=== PATIENT | female | born 1955 | race Caucasian/White ===

== ENCOUNTER → 2017-02-25 | Outpatient (CLI) | payer BC ==
[~2017-02-25] MED LIST: CHOL100010 PO; CMD5 PO; CMD75 PO; DLCSR180 PO; DPKSR500 PO; FSM70 PO; LSN25 PO
--- NOTE | 2017-02-26 13:21 | MAMMOGRAPHY REPORT ---
BILATERAL DIGITAL SCREENING MAMMOGRAM TOMOSYNTHESIS WITH CAD: 02/25/2017 CLINICAL HISTORY: Routine screening. Patient has no complaints. TECHNIQUE: Breast tomosynthesis in addition to standard 2D mammography was performed. Current study was also evaluated with a Computer Aided Detection (CAD) system. COMPARISON: Comparison is made to exams dated: 02/20/2016 mammogram, 02/12/2015 mammogram, 02/08/2014 m ammogram, 02/03/2012 mammogram, 02/07/2013 mammogram, and 01/28/2011 mammogram - [facility] nter. BREAST COMPOSITION: There are scattered areas of fibroglandular density in both breasts. FINDINGS: No suspicious masses, calcifications, or areas of architectural distortion are noted in ei ther breast. There has been no significant interval change compared to prior exams. Scattered bilater al benign-appearing calcifications are not significantly changed. IMPRESSION: ACR BI-RADS CATEGORY 2: BENIGN There is no mammographic evidence of malignancy. A 1 year screening mammogram is recommended. The pa tient will receive written notification of the results. Approximately 10% of breast cancers are not detected with mammography. A negative mammographic report should not delay biopsy if a clinically suggestive mass is present. Veronica James M.D. /:02/25/2017 15:08:26 Recovery Agent: Keren PETERS)(M), [facility] letter sent: Normal 1/2 BI-RADS Code: ACR BI-RADS Category 2: Benign
== END | disposition home or self-care (01) ==
LOC: C.MAMM 14:17
PROVIDERS: ATTEND Family Medicine
DX: Z12.31 Encounter for screening mammogram for malignant neoplasm of breast (principal)

== ENCOUNTER → 2018-03-01 | Outpatient (CLI) | payer BC ==
--- NOTE | 2018-03-02 13:40 | MAMMOGRAPHY REPORT ---
BILATERAL DIGITAL SCREENING MAMMOGRAM TOMOSYNTHESIS WITH CAD: 03/01/2018 CLINICAL HISTORY: Routine screening. Patient has no complaints. TECHNIQUE: The study was acquired using full field digital technology and interpreted from soft copy. Breast tomosynthesis in addition to standard 2D mammography was performed. Current study was also ev aluated with a Computer Aided Detection (CAD) system. COMPARISON: Comparison is made to exams dated: 02/25/2017 mammogram, 02/20/2016 mammogram, 02/12/2015 ma mmogram, 02/08/2014 mammogram, 02/07/2013 mammogram, and 02/03/2012 mammogram - [facility] nter. BREAST COMPOSITION: There are scattered areas of fibroglandular density in both breasts. FINDINGS: The parenchymal pattern is similar to prior mammograms. There are moderate vascular calcifications i n the breasts. No developing mass, architectural distortion or cluster of suspicious microcalcificat ions is seen. IMPRESSION: ACR BI-RADS CATEGORY 2: BENIGN There is no mammographic evidence of malignancy. A 1 year screening mammogram is recommended.( 019) The patient will receive written notification of the results. Some breast cancers are not detected with mammography. A negative mammographic report should not misty y biopsy if a clinically suggestive mass is present. Laxmi Medina M.D. ay/:03/01/2018 17:43:59 Plumber Pipe Fitting: RT Hedy(Jared)(M), [facility] letter sent: Normal 1/2 BI-RADS Code: ACR BI-RADS Category 2: Benign
== END | disposition home or self-care (01) ==
LOC: C.MAMM 09:55
PROVIDERS: ATTEND Family Medicine
DX: Z12.31 Encounter for screening mammogram for malignant neoplasm of breast (principal)

== ENCOUNTER 2021-02-06 10:53 | Inpatient (IN) ==
[2021-02-06 11:44] LABS: Basophils # (auto) 0.01 K/uL (0-0.2); Basophils % (auto) 0.2 %; Eosinophils # (auto) 0.15 K/uL (0-0.5); Eosinophils % (auto) 2.7 %; Hematocrit (blood only) 35.8 % (37-47); Hemoglobin 12.5 g/dL (12.0-16.0); Immature Granulocytes # (auto) 0.01 K/uL (0.00-0.02); Immature Granulocytes % (auto) 0.2 %; Lymphocytes # (auto) 1.01 K/uL (1.2-3.4); Lymphocytes % (auto) 18.1 %; Mean Corpuscular Hemoglobin 31.6 pg (25-34); Mean Corpuscular Hgb Conc 34.9 g/dL (32-36); Mean Corpuscular Volume 90.6 fL (80-100); Monocytes % (auto) 10.8 %; Neutrophils # (auto) 3.79 K/uL (1.4-6.5); Platelet Count 129 K/uL (130-400); RDW Coefficient of Variation 12.9 % (11.5-14.5); RDW Standard Deviation 43.1 fL (36.4-46.3); Red Blood Count 3.95 M/uL (4.2-5.4); White Blood Count 5.57 K/uL (4.8-10.8)
[2021-02-06 12:01] LABS: Prothrombin Time 36.2 Seconds (9.0-12.0)
[2021-02-06 12:02] LABS: Albumin Level 3.5 gm/dl (3.4-5.0); BUN Creatinine Ratio 19.7 (10-20); Calcium 8.8 mg/dl (8.5-10.1); Creatinine Clr Calc Pharmacy 36.6 ml/min; Est GFR (African American) 42.7 ml/min; Est GFR (Non-African American) 36.8 ml/min; Potassium 4.4 mmol/L (3.5-5.1)
[2021-02-06 12:13] LABS: Albumin Globulin Ratio 0.9 (0.9-2); Bilirubin,Total 0.5 mg/dl (0.2-1); Thyroid Stimulating Hormone 1.09 uIu/ml (0.300-4.500); Total Protein 7.5 gm/dl (6.4-8.2)
[2021-02-06 12:15] LABS: Acetaminophen 3 ug/ml (10-30); Salicylate < 1.7 mg/dl (2.8-20); Valproic Acid 98 mcg/ml (50-100)
--- NOTE | 2021-02-06 12:15 | CT Scan Report ---
CT head/brain wo con CLINICAL HISTORY: Acute change in mental status COMPARISON STUDY: 01/27/2021 TECHNIQUE: Axial CT of the brain is performed from the vertex to the skull base. IV contrast was not administered for this examination. A dose lowering technique was utilized adhering to the principles of ALARA. CT DOSE: 638.56 mGycm FINDINGS: No intra or extra-axial mass lesions are visualized. There is no CT evidence of acute cortical infarc tion. There is no evidence of midline shift. There is no acute hemorrhage. No calvarial fractures ar e visualized. There are patchy white matter hypodensities likely on a small vessel basis. There is no evidence of pathologic ventricular dilatation. There is no evidence of acute sinusitis IMPRESSION: No acute intracranial findings ACT 112: Negative or not required by law. Electronically signed by: Vance Day M.D. 02/06/2021 12:14 PM
[2021-02-06 12:24] LABS: Partial Thromboplastin Time 77.9 Seconds (21.0-31.0)
[2021-02-06 12:40] LABS: Lyme Ab IgM w/WB Rflx Negative (Negative)
[2021-02-06 12:42] LABS: Lyme Ab IgG w/WB Rflx Negative (Negative)
[2021-02-06] MEDS ORDERED: SODIUM CHLORIDE 0.9% 1000ML 1,000 ML IV SCH (12:45)
[2021-02-06 12:58] LABS: Amphetamines+Metham, Urine Neg (Neg); Barbiturates, Urine Neg (Neg); Benzodiazepine, Urine Pos (Neg); Cocaine, Urine Neg (Neg); MDMA (Ecstacy), Urine Neg (Neg); Methadone, Urine Neg (Neg); Opiate, Urine Neg (Neg); Phencyclidine, Urine Neg (Neg)
[2021-02-06 13:29] LABS: Appearance Urine Clear (Clear); Bacteria Urine Automated 1+ (Negative); Bilirubin Urine Negative (Negative); Blood Urine Trace (Negative); Color Urine Yellow; Glucose Urine UA Negative (Negative); Ketones Urine 1+ (Negative); Leukocyte Esterase Urine Negative (Negative); Nitrite Urine Negative (Negative); Protein Urine Negative (Negative); RBC Urine Automated 0-4 /hpf (0-4); Specific Gravity Urine 1.009 (1.000-1.030); Urobilinogen Urine Negative (Negative)
--- NOTE | 2021-02-06 13:48 | Emergency Department Note ---
History of Present Illness General Chief complaint: Neuro Symptoms/Deficit Stated complaint: UNCONTROLLABLE MOVEMENTS, TROUBLE SLEEPING, SPEAK Time Seen by Provider: 02/06/21 11:08 History of Present Illness Provider complaint: Anxiety and agitation uncontrolled movements Onset (ago): month(s) (2.5) Maximum Pain Intensity: 0 65-year-old female presents emergency department with her for anxiety, agitation, and uncontrolled movements. The patient's reports that the patient is becoming increasingly anxious and increasingly agitated. He reports that she has not been sleeping. He reports that the patient has been uncont rollably moving her arms. Patient denies any falls or trauma. No fevers. Patient was recently seen here for anxiety and cleared for discharge by psychiatric glass novelty maker. Patient's states they saw a psychiatrist yesterday [place]. He reports that they followed up with her PCP in [facility] Dr. Alexis. Per the , Dr. Alexis told the patient to return to the emergency department for further testing. He stated that Dr. Alexis thought the patient's anxiety and agitation were due to her hyponatremia and instructed her to stop taking the benzodiazepines were given to her. is also requesting that a Lyme screen be conducted on the patient. Home Medications Medication Instructions Recorded Confirmed Type alendronate 70 mg tablet 70 mg PO WK 01/27/21 02/06/21 History diltiazem HCl 180 mg 180 mg PO QAM 01/27/21 02/06/21 History capsule,extended release 24 hr (Cartia XT) divalproex 500 mg tablet,extended 1,000 mg PO QAM 01/27/21 02/06/21 History release 24 hr lisinopril 2.5 mg tablet 2.5 mg PO PM 01/27/21 02/06/21 History rosuvastatin 5 mg tablet 5 mg PO PM 01/27/21 02/06/21 History warfarin 5 mg tablet 2.5 - 5 mg PO DIRECTED 01/27/21 02/06/21 History acetaminophen 325 mg capsule 325 mg PO DAILY PRN 02/06/21 02/06/21 History (Tylenol) Allergies Allergy/AdvReac Type Severity Reaction Status Date / Time amoxicillin Allergy Unknown As per Unverified 01/27/21 18:43 [facility] carbamazepine Allergy Unknown Hives Unverified 01/27/21 18:43 diphenhydramine Allergy Unknown As per Unverified 01/27/21 18:43 [From Benadryl] [facility] estrogens, conjugated Allergy Unknown Hives Unverified 01/27/21 18:43 [From Premarin] penicillin G Allergy Unknown As per Unverified 01/27/21 18:43 [facility] phenytoin Allergy Unknown Hives Unverified 01/27/21 18:43 sulfamethoxazole Allergy Unknown chills/shari Unverified 01/27/21 18:43 [From Bactrim] rs/hives trimethoprim [From Bactrim] Allergy Unknown chills/shari Unverified 01/27/21 18:43 rs/hives ciprofloxacin [From Cipro] AdvReac Unknown C. Diff Unverified 01/27/21 18:43 phenobarbital AdvReac Unknown Depression Unverified 01/27/21 18:43 Past Med/Surg History Medical History Anxiety Atrial fibrillation HLD (hyperlipidemia) HTN (hypertension) No pertinent family history Surgical History No pertinent past surgical history Social History Smoking Status: Never smoker Preferred Language: Swedish Feels Safe at Home: Yes Review of Systems A total of 10 systems reviewed and were otherwise negative Physical Exam Vital Signs Vital Signs - 24 hr 02/06/21 10:59 02/06/21 11:10 02/06/21 11:30 Temperature 36.6 C Temperature Source Temporal Artery Scan Pulse Rate 98 H 87 Pulse Rate from SpO2 Sensor 80 Respiratory Rate 18 18 Respiratory Effort / Characteristics Non-Labored Spontaneous Respiratory Depth Normal Respiratory Pattern Regular Blood Pressure 134/79 154/70 H Blood Pressure Mean 97 98 Blood Pressure Position Sitting Pulse Oximetry 98 100 100 Oxygen Delivery Method Room Air Room Air Room Air Sepsis Recent Fever Within 48 Hours No Sepsis New/Unexplained Change in Mental Status N/A Sepsis Action Taken by Nursing No Action Required 02/06/21 11:31 02/06/21 12:00 02/06/21 12:30 Temperature Temperature Source Pulse Rate 72 71 Pulse Rate from SpO2 Sensor 73 71 Respiratory Rate 15 25 H Respiratory Effort / Characteristics Respiratory Depth Respiratory Pattern Blood Pressure 121/61 133/65 Blood Pressure Mean 81 110 87 Blood Pressure Position Pulse Oximetry 100 99 Oxygen Delivery Method Room Air Room Air Sepsis Recent Fever Within 48 Hours Sepsis New/Unexplained Change in Mental Status Sepsis Action Taken by Nursing 02/06/21 13:01 02/06/21 13:30 Temperature Temperature Source Pulse Rate 73 78 Pulse Rate from SpO2 Sensor 73 80 Respiratory Rate 14 17 Respiratory Effort / Characteristics Respiratory Depth Respiratory Pattern Blood Pressure 141/80 H 139/85 Blood Pressure Mean 100 103 Blood Pressure Position Pulse Oximetry 98 99 Oxygen Delivery Method Room Air Room Air Sepsis Recent Fever Within 48 Hours Sepsis New/Unexplained Change in Mental Status Sepsis Action Taken by Nursing Physical Exam HENT: Exam performed. -Head: Normocephalic and atraumatic. -Right Ear: External ear normal. No mastoid tenderness. -Left Ear: External ear normal. No mastoid tenderness. -Mouth/Throat: The oropharynx is clear and moist. No trismus in the jaw. No dental abscesses or uvula swelling. No oropharyngeal exudate or tonsillar abscesses. EYES: Conjunctivae and EOM are normal. Pupils are equal, round, and reactive to light. Right eye exhibits no discharge. Left eye exhibits no discharge. No scleral icterus. NECK: Normal range of motion. Neck supple. No JVD present. No spinous process tenderness present. No carotid bruit present. No rigidity. No tracheal deviation and normal range of motion present. No Brudzinski's sign and no Kernig's sign noted. CV: Normal rate, regular rhythm, normal heart sounds and intact distal pulses. There is no peripheral edema. Palpable radial pulses bue. PULM/CHEST: Effort normal and breath sounds normal. No respiratory distress. No stridor. She has no wheezes. She has no rales. -Chest Wall: She exhibits no tenderness. ABD: The abdomen is soft. Bowel sounds are normal. She has no distension. No mass is present. There is no tenderness. There is no rebound, no guarding, no Correia's sign and no tenderness at McBurney's point. Rovsig negative MUSC/SKEL: Normal range of motion. There is no peripheral edema, tenderness or deformity. NEURO: No cranial nerve deficit. SKIN: Skin is warm and dry. She is not diaphoretic. PSYCH: Patient appears agitated and has pressured speech. Course Course 1108: The patient was evaluated in room B9. A complete history and physical exam was performed EMR reviewed. Patient was seen by me on January 27, 2021, 10 days ago. At that time she was determined to have a anxiety and was discharged with a prescription of Xanax and home pack of Ativan. Her sodium at that time was 128. 1240: Vital signs stable. CT of the head showed no ICH. Labs show a therapeutic INR of 4.0. Sodium 127. Creatinine 1.47. [facility]. Patient has no seizure-like activity and sodium is only mildly hyponatremic, no need for hypertonic saline at this time. Discussed case with Naila villalpando DAIRY MANAGER who stated to admit to Dr. Moe. Administered Medications Sodium Chloride (Nss 1000ml) 1,000 mls @ 125 mls/hr IV .Q8H RODNEY Stop: 03/08/21 12:44 Last Admin: 02/06/21 12:58 Dose: 125 mls/hr Documented by: [id number] Medical Decision Making Laboratory Data Result diagrams: 02/06/21 11:26 02/06/21 11:26 Lab Results 02/06/21 02/06/21 02/06/21 Range/Units 11:20 11:26 11:26 WBC 5.57 (4.8-10.8) K/uL RBC 3.95 L (4.2-5.4) M/uL Hgb 12.5 (12.0-16.0) g/dL Hct 35.8 L (37-47) % MCV 90.6 (80-100) fL MCH 31.6 (25-34) pg MCHC 34.9 (32-36) g/dL RDW Std Deviation 43.1 (36.4-46.3) fL RDW Coeff of Cely 12.9 (11.5-14.5) % Plt Count 129 L (130-400) K/uL MPV 11.0 H (7.4-10.4) fL Immature Gran % (Auto) 0.2 % Neut % (Auto) 68.0 % Lymph % (Auto) 18.1 % [place] % (Auto) 10.8 % Eos % (Auto) 2.7 % Baso % (Auto) 0.2 % Neut # (Auto) 3.79 (1.4-6.5) K/uL Lymph # (Auto) 1.01 L (1.2-3.4) K/uL [place] # (Auto) 0.60 H (0.11-0.59) K/uL Eos # (Auto) 0.15 (0-0.5) K/uL Baso # (Auto) 0.01 (0-0.2) K/uL Immature Gran # (Auto) 0.01 (0.00-0.02) K/uL PT (9.0-12.0) Seconds INR (0.9-1.1) APTT (21.0-31.0) Seconds PTT Ratio Sodium (136-145) mmol/L Potassium (3.5-5.1) mmol/L Chloride (98-107) mmol/L Carbon Dioxide (21-32) mmol/L Anion Gap (3-11) BUN (7-18) mg/dl Creatinine (0.6-1.2) mg/dl Est Cr Clr Drug Dosing ml/min Est GFR ( Amer) ml/min Est GFR (Non-Af Amer) ml/min BUN/Creatinine Ratio (10-20) Glucose (70-99) mg/dl POC Glucose 85 (70-99) mg/dl Osmolality (280-300) mOsm/kg Calcium (8.5-10.1) mg/dl Magnesium (1.8-2.4) mg/dl Total Bilirubin (0.2-1) mg/dl AST (15-37) U/L ALT (12-78) U/L Alkaline Phosphatase (45-117) U/L Total Protein (6.4-8.2) gm/dl Albumin (3.4-5.0) gm/dl Globulin (2.5-4.0) gm/dl Albumin/Globulin Ratio (0.9-2) TSH (0.300-4.500) uIu/ml Urine Color Urine Appearance (Clear) Urine pH (4.5-7.5) Ur Specific [place] (1.000-1.030) Urine Protein (Negative) Urine Glucose (UA) (Negative) Urine Ketones (Negative) Urine Blood (Negative) Urine Nitrite (Negative) Urine Bilirubin (Negative) Urine Urobilinogen (Negative) Ur Leukocyte Esterase (Negative) Urine WBC (Auto) (0-5) /hpf Urine RBC (Auto) (0-4) /hpf U Hyaline Cast (Auto) (0-5) /lpf U Epithel Cells (Auto) (0-5) /lpf Urine Bacteria (Auto) (Negative) Urine Osmolality (500-800) mOsm/kg Salicylates < 1.7 L (2.8-20) mg/dl Urine Opiates Screen (Neg) Ur Methadone, Qual (Neg) Acetaminophen 3 L (10-30) ug/ml Urine Barbiturates (Neg) Valproic Acid 98 (50-100) mcg/ml Ur Phencyclidine (PCP) (Neg) U Amphetamin/Meth Scrn (Neg) MDMA (Ecstasy) Screen (Neg) U Benzodiazepines Scrn (Neg) Ur Cocaine Metabolite (Neg) U Marijuana (THC) Screen (Neg) Ethyl Alcohol mg/dL (0-3) mg/dl Lyme Disease IgG Ab (Negative) Lyme Disease IgM Ab (Negative) COVID-19 Eval Order 02/06/21 02/06/21 02/06/21 Range/Units 11:26 11:26 11:26 WBC (4.8-10.8) K/uL RBC (4.2-5.4) M/uL Hgb (12.0-16.0) g/dL Hct (37-47) % MCV (80-100) fL MCH (25-34) pg MCHC (32-36) g/dL RDW Std Deviation (36.4-46.3) fL RDW Coeff of Cely (11.5-14.5) % Plt Count (130-400) K/uL MPV (7.4-10.4) fL Immature Gran % (Auto) % Neut % (Auto) % Lymph % (Auto) % [place] % (Auto) % Eos % (Auto) % Baso % (Auto) % Neut # (Auto) (1.4-6.5) K/uL Lymph # (Auto) (1.2-3.4) K/uL [place] # (Auto) (0.11-0.59) K/uL Eos # (Auto) (0-0.5) K/uL Baso # (Auto) (0-0.2) K/uL Immature Gran # (Auto) (0.00-0.02) K/uL PT 36.2 H (9.0-12.0) Seconds INR 4.0 H (0.9-1.1) APTT 77.9 H* (21.0-31.0) Seconds PTT Ratio 3.0 Sodium 127 L (136-145) mmol/L Potassium 4.4 (3.5-5.1) mmol/L Chloride 96 L (98-107) mmol/L Carbon Dioxide 24 (21-32) mmol/L Anion Gap 7.0 (3-11) BUN 29 H (7-18) mg/dl Creatinine 1.47 H (0.6-1.2) mg/dl Est Cr Clr Drug Dosing 36.6 ml/min Est GFR ( Amer) 42.7 ml/min Est GFR (Non-Af Amer) 36.8 ml/min BUN/Creatinine Ratio 19.7 (10-20) Glucose 81 (70-99) mg/dl POC Glucose (70-99) mg/dl Osmolality (280-300) mOsm/kg Calcium 8.8 (8.5-10.1) mg/dl Magnesium 2.0 (1.8-2.4) mg/dl Total Bilirubin 0.5 (0.2-1) mg/dl AST 113 H (15-37) U/L ALT 54 (12-78) U/L Alkaline Phosphatase 45 (45-117) U/L Total Protein 7.5 (6.4-8.2) gm/dl Albumin 3.5 (3.4-5.0) gm/dl Globulin 4.0 (2.5-4.0) gm/dl Albumin/Globulin Ratio 0.9 (0.9-2) TSH 1.090 (0.300-4.500) uIu/ml Urine Color Urine Appearance (Clear) Urine pH (4.5-7.5) Ur Specific [place] (1.000-1.030) Urine Protein (Negative) Urine Glucose (UA) (Negative) Urine Ketones (Negative) Urine Blood (Negative) Urine Nitrite (Negative) Urine Bilirubin (Negative) Urine Urobilinogen (Negative) Ur Leukocyte Esterase (Negative) Urine WBC (Auto) (0-5) /hpf Urine RBC (Auto) (0-4) /hpf U Hyaline Cast (Auto) (0-5) /lpf U Epithel Cells (Auto) (0-5) /lpf Urine Bacteria (Auto) (Negative) Urine Osmolality (500-800) mOsm/kg Salicylates (2.8-20) mg/dl Urine Opiates Screen (Neg) Ur Methadone, Qual (Neg) Acetaminophen (10-30) ug/ml Urine Barbiturates (Neg) Valproic Acid (50-100) mcg/ml Ur Phencyclidine (PCP) (Neg) U Amphetamin/Meth Scrn (Neg) MDMA (Ecstasy) Screen (Neg) U Benzodiazepines Scrn (Neg) Ur Cocaine Metabolite (Neg) U Marijuana (THC) Screen (Neg) Ethyl Alcohol mg/dL (0-3) mg/dl Lyme Disease IgG Ab Negative (Negative) Lyme Disease IgM Ab Negative (Negative) COVID-19 Eval Order 02/06/21 02/06/21 02/06/21 Range/Units 11:26 11:31 12:28 WBC (4.8-10.8) K/uL RBC (4.2-5.4) M/uL Hgb (12.0-16.0) g/dL Hct (37-47) % MCV (80-100) fL MCH (25-34) pg MCHC (32-36) g/dL RDW Std Deviation (36.4-46.3) fL RDW Coeff of Cely (11.5-14.5) % Plt Count (130-400) K/uL MPV (7.4-10.4) fL Immature Gran % (Auto) % Neut % (Auto) % Lymph % (Auto) % [place] % (Auto) % Eos % (Auto) % Baso % (Auto) % Neut # (Auto) (1.4-6.5) K/uL Lymph # (Auto) (1.2-3.4) K/uL [place] # (Auto) (0.11-0.59) K/uL Eos # (Auto) (0-0.5) K/uL Baso # (Auto) (0-0.2) K/uL Immature Gran # (Auto) (0.00-0.02) K/uL PT (9.0-12.0) Seconds INR (0.9-1.1) APTT (21.0-31.0) Seconds PTT Ratio Sodium (136-145) mmol/L Potassium (3.5-5.1) mmol/L Chloride (98-107) mmol/L Carbon Dioxide (21-32) mmol/L Anion Gap (3-11) BUN (7-18) mg/dl Creatinine (0.6-1.2) mg/dl Est Cr Clr Drug Dosing ml/min Est GFR ( Amer) ml/min Est GFR (Non-Af Amer) ml/min BUN/Creatinine Ratio (10-20) Glucose (70-99) mg/dl POC Glucose (70-99) mg/dl Osmolality 278 L (280-300) mOsm/kg Calcium (8.5-10.1) mg/dl Magnesium (1.8-2.4) mg/dl Total Bilirubin (0.2-1) mg/dl AST (15-37) U/L ALT (12-78) U/L Alkaline Phosphatase (45-117) U/L Total Protein (6.4-8.2) gm/dl Albumin (3.4-5.0) gm/dl Globulin (2.5-4.0) gm/dl Albumin/Globulin Ratio (0.9-2) TSH (0.300-4.500) uIu/ml Urine Color Yellow Urine Appearance Clear (Clear) Urine pH 6.0 (4.5-7.5) Ur Specific [place] 1.009 (1.000-1.030) Urine Protein Negative (Negative) Urine Glucose (UA) Negative (Negative) Urine Ketones 1+ H (Negative) Urine Blood Trace H (Negative) Urine Nitrite Negative (Negative) Urine Bilirubin Negative (Negative) Urine Urobilinogen Negative (Negative) Ur Leukocyte Esterase Negative (Negative) Urine WBC (Auto) 1-5 (0-5) /hpf Urine RBC (Auto) 0-4 (0-4) /hpf U Hyaline Cast (Auto) 1-5 (0-5) /lpf U Epithel Cells (Auto) 10-20 H (0-5) /lpf Urine Bacteria (Auto) 1+ H (Negative) Urine Osmolality (500-800) mOsm/kg Salicylates (2.8-20) mg/dl Urine Opiates Screen (Neg) Ur Methadone, Qual (Neg) Acetaminophen (10-30) ug/ml Urine Barbiturates (Neg) Valproic Acid (50-100) mcg/ml Ur Phencyclidine (PCP) (Neg) U Amphetamin/Meth Scrn (Neg) MDMA (Ecstasy) Screen (Neg) U Benzodiazepines Scrn (Neg) Ur Cocaine Metabolite (Neg) U Marijuana (THC) Screen (Neg) Ethyl Alcohol mg/dL < 3.0 (0-3) mg/dl Lyme Disease IgG Ab (Negative) Lyme Disease IgM Ab (Negative) COVID-19 Eval Order 02/06/21 02/06/21 02/06/21 Range/Units 12:28 12:28 12:56 WBC (4.8-10.8) K/uL RBC (4.2-5.4) M/uL Hgb (12.0-16.0) g/dL Hct (37-47) % MCV (80-100) fL MCH (25-34) pg MCHC (32-36) g/dL RDW Std Deviation (36.4-46.3) fL RDW Coeff of Cely (11.5-14.5) % Plt Count (130-400) K/uL MPV (7.4-10.4) fL Immature Gran % (Auto) % Neut % (Auto) % Lymph % (Auto) % [place] % (Auto) % Eos % (Auto) % Baso % (Auto) % Neut # (Auto) (1.4-6.5) K/uL Lymph # (Auto) (1.2-3.4) K/uL [place] # (Auto) (0.11-0.59) K/uL Eos # (Auto) (0-0.5) K/uL Baso # (Auto) (0-0.2) K/uL Immature Gran # (Auto) (0.00-0.02) K/uL PT (9.0-12.0) Seconds INR (0.9-1.1) APTT (21.0-31.0) Seconds PTT Ratio Sodium (136-145) mmol/L Potassium (3.5-5.1) mmol/L Chloride (98-107) mmol/L Carbon Dioxide (21-32) mmol/L Anion Gap (3-11) BUN (7-18) mg/dl Creatinine (0.6-1.2) mg/dl Est Cr Clr Drug Dosing ml/min Est GFR ( Amer) ml/min Est GFR (Non-Af Amer) ml/min BUN/Creatinine Ratio (10-20) Glucose (70-99) mg/dl POC Glucose (70-99) mg/dl Osmolality (280-300) mOsm/kg Calcium (8.5-10.1) mg/dl Magnesium (1.8-2.4) mg/dl Total Bilirubin (0.2-1) mg/dl AST (15-37) U/L ALT (12-78) U/L Alkaline Phosphatase (45-117) U/L Total Protein (6.4-8.2) gm/dl Albumin (3.4-5.0) gm/dl Globulin (2.5-4.0) gm/dl Albumin/Globulin Ratio (0.9-2) TSH (0.300-4.500) uIu/ml Urine Color Urine Appearance (Clear) Urine pH (4.5-7.5) Ur Specific [place] (1.000-1.030) Urine Protein (Negative) Urine Glucose (UA) (Negative) Urine Ketones (Negative) Urine Blood (Negative) Urine Nitrite (Negative) Urine Bilirubin (Negative) Urine Urobilinogen (Negative) Ur Leukocyte Esterase (Negative) Urine WBC (Auto) (0-5) /hpf Urine RBC (Auto) (0-4) /hpf U Hyaline Cast (Auto) (0-5) /lpf U Epithel Cells (Auto) (0-5) /lpf Urine Bacteria (Auto) (Negative) Urine Osmolality 248 L (500-800) mOsm/kg Salicylates (2.8-20) mg/dl Urine Opiates Screen Neg (Neg) Ur Methadone, Qual Neg (Neg) Acetaminophen (10-30) ug/ml Urine Barbiturates Neg (Neg) Valproic Acid (50-100) mcg/ml Ur Phencyclidine (PCP) Neg (Neg) U Amphetamin/Meth Scrn Neg (Neg) MDMA (Ecstasy) Screen Neg (Neg) U Benzodiazepines Scrn Pos H (Neg) Ur Cocaine Metabolite Neg (Neg) U Marijuana (THC) Screen Neg (Neg) Ethyl Alcohol mg/dL (0-3) mg/dl Lyme Disease IgG Ab (Negative) Lyme Disease IgM Ab (Negative) COVID-19 Eval Order Covid19 at [facility] Imaging Data Radiologist's Impression: Head CT 02/06/21 11:11 CT head/brain wo con CLINICAL HISTORY: Acute change in mental status COMPARISON STUDY: 01/27/2021 TECHNIQUE: Axial CT of the brain is performed from the vertex to the skull base. IV contrast was not administered for this examination. A dose lowering technique was utilized adhering to the principles of ALARA. CT DOSE: 638.56 mGycm FINDINGS: No intra or extra-axial mass lesions are visualized. There is no CT evidence of acute cortical infarction. There is no evidence of midline shift. There is no acute hemorrhage. No calvarial fractures are visualized. There are patchy white matter hypodensities likely on a small vessel basis. There is no evidence of pathologic ventricular dilatation. There is no evidence of acute sinusitis IMPRESSION: No acute intracranial findings ACT 112: Negative or not required by law. Electronically signed by: Vance Day M.D. 02/06/2021 12:14 PM [facility] Narrative 1108: The patient was evaluated in room B9. A complete history and physical exam was performed EMR reviewed. Patient was seen by me on January 27, 2021, 10 days ago. At that time she was determined to have a anxiety and was discharged with a prescription of Xanax and home pack of Ativan. Her sodium at that time was 128. 1240: Vital signs stable. CT of the head showed no ICH. Labs show a therapeutic INR of 4.0. Sodium 127. Creatinine 1.47. [facility]. Patient has no seizure-like activity and sodium is only mildly hyponatremic, no need for hypertonic saline at this time. Discussed case with Naila villalpando DAIRY MANAGER who stated to admit to Dr. Moe. Impression & Plan Hyponatremia, Anxiety Discharge Plan Visit Data Chief Complaint: Neuro Symptoms/Deficit Stated Complaint: UNCONTROLLABLE MOVEMENTS, TROUBLE SLEEPING, SPEAK ED Provider: Gus Pompa Discharge Problem: Hyponatremia, Anxiety Patient Disposition: Admitted As Inpatient Forms Stand Alone Forms: My [facility] Prescriptions Prescriptions: No Action diltiazem HCl [Cartia XT] 180 mg capsule,extended release 24hr 180 mg PO QAM RF: 0 alendronate 70 mg tablet 70 mg PO WK RF: 0 divalproex 500 mg tablet extended release 24 hr 1,000 mg PO QAM RF: 0 warfarin 5 mg tablet 2.5 - 5 mg PO DIRECTED RF: 0 lisinopril 2.5 mg tablet 2.5 mg PO PM RF: 0 rosuvastatin 5 mg tablet 5 mg PO PM RF: 0 acetaminophen [Tylenol] 325 mg capsule 325 mg PO DAILY PRN (Reason: Pain) RF: 0 Referrals Referrals: José Miguel Alexis DO [Primary Care Provider] -
[2021-02-06 16:04] LABS: Calcium 8.7 mg/dl (8.5-10.1); Creatinine Clr Calc Pharmacy 44.1 ml/min; Est GFR (African American) 53.5 ml/min; Est GFR (Non-African American) 46.1 ml/min; Potassium 4.9 mmol/L (3.5-5.1)
--- NOTE | 2021-02-06 16:16 | History & Physical Report ---
Date of Service February 06, 2021 Assessment & Plan (1) Motor restlessness: Plan: -admit to tele -patient presenting from home with reports of worsening anxiety, restlessness, and uncontrolled motor movements -was seen in ED last week for similar complaints, was given script for Xanax however did not take any of the pills -was evaluated by psych as an outpatient yesterday who recommended neuro eval -etiology remains unclear -noted to be mildly hyponatremic and urine culture positive on 01/27 however doubt that these are causing patient's symptoms -Brain MRI, EEG -Check vitamin B12 and Depakote levels -Neurology consult, case discussed with Dr. Cagle (2) E. coli UTI: Plan: -Urine culture positive for E. coli on 01/27 -Start IV ceftriaxone per sensitivities -Does not appear septic (3) Hyponatremia: Plan: -Mild, Na+ 127 -Check urine and serum Osmo -Start NSS at 80cc/hr -Nephrology consult (4) Lab test positive for detection of COVID-19 virus: Plan: -No respiratory symptoms -Treatment not indicated at this time (5) Atrial fibrillation: Plan: -Rate controlled on diltiazem -Anticoagulated on Coumadin, INR 4.0 -hold Coumadin for tonight (6) HTN (hypertension): Plan: -BP controlled, continue diltiazem and lisinopril (7) Epilepsy: Plan: -Recent outpatient Depakote level 100 (high end of normal), will repeat today -Resume Depakote pending level results (8) CKD (chronic kidney disease), stage III: Plan: -Baseline creatinine runs in the low-mid 1's -1.4 today -Monitor renal functions (9) DVT prophylaxis: Plan: -On Coumadin, INR 4.0 History of Present Illness Chief Complaint: Antiphospholipid syndrome Primary Care Provider: José Miguel Alexis DO 65 -year-old female with PMH HTN, paroxysmal atrial fibrillation anticoagulated on Coumadin, epilepsy, antiphospholipid antibody syndrome, and other problems listed below who presents to the ED for evaluation of anxiety and restlessness. Symptoms have been going on for the past few weeks and progressively getting worse. Patient was seen in the ED on 01/[address] with these complaints. Head CT was unremarkable. Na+ 128. Patient was discharged on PRN Xanax and instruction to follow up with PCP. Patient had repeat labs, Na+ 127 -> 128. Depakote level 100 (high end of normal). Patient was instructed to hold Paxil until seen by psych. Was referred to psych and seen there yesterday who did not feel that problem is underlying psych but rather neurological. Patient sent to the ED today for further eval. Patient reports she is not sleeping. She feels anxious and continues to have uncontrolled movements and drops things. She denies chest pain and shortness of breath. No abdominal pain, nausea, vomiting, or diarrhea. Denies fever and chills. No lightheadedness, dizziness, diaphoresis, or syncopal events. Denies urinary symptoms. In the ED, Na+ 127. Head CT unremarkable. Vitals stable. Patient was given IVF. Allergies Allergy/AdvReac Type Severity Reaction Status Date / Time carbamazepine Allergy Intermediate Hives Unverified 02/10/21 18:38 estrogens, conjugated Allergy Intermediate Hives Unverified 02/10/21 18:38 [From Premarin] phenytoin Allergy Intermediate Hives Unverified 02/10/21 18:38 sulfamethoxazole Allergy Intermediate chills/shari Unverified 02/10/21 18:38 [From Bactrim] rs/hives trimethoprim [From Bactrim] Allergy Intermediate chills/shari Unverified 02/10/21 18:38 rs/hives amoxicillin Allergy Unknown As per Unverified 01/27/21 18:43 [facility] diphenhydramine Allergy Unknown As per Unverified 01/27/21 18:43 [From Benadryl] [facility] penicillin G Allergy Unknown As per Unverified 01/27/21 18:43 [facility] ciprofloxacin [From Cipro] AdvReac Intermediate C. Diff Unverified 02/10/21 18:38 phenobarbital AdvReac Intermediate Depression Unverified 02/10/21 18:38 Home Medications Medication Instructions Recorded Confirmed Type alendronate 70 mg tablet 70 mg PO WK 01/27/21 02/06/21 History diltiazem HCl 180 mg 180 mg PO QAM 01/27/21 02/06/21 History capsule,extended release 24 hr (Cartia XT) divalproex 500 mg tablet,extended 1,000 mg PO QAM 01/27/21 02/06/21 History release 24 hr rosuvastatin 5 mg tablet 5 mg PO PM 01/27/21 02/06/21 History warfarin 5 mg tablet 2.5 - 5 mg PO DIRECTED 01/27/21 02/06/21 History acetaminophen 325 mg capsule 325 mg PO DAILY PRN 02/06/21 02/06/21 History (Tylenol) lorazepam 0.5 mg tablet (Ativan) 0.5 mg PO BID PRN #10 tab 02/17/21 Rx olanzapine 2.5 mg tablet 7.5 mg PO HS #30 tab 02/17/21 Rx sodium chloride 1 gram tablet 1 g PO BID #60 tab 02/17/21 Rx Past Med/Surg History Medical History (Updated 02/11/21 @ 00:08 by Marquita Sagastume) Antiphospholipid syndrome Anxiety Atrial fibrillation CKD (chronic kidney disease), stage III Epilepsy HLD (hyperlipidemia) HTN (hypertension) Lab test positive for detection of COVID-19 virus Surgical History S/P VINCENZO-BSO Family History Father Hypertension Mother Hypertension Social History (Updated 02/06/21 @ 16:26 by MILIND Jerez) Smoking Status: Never smoker Hx Alcohol Use: No Hx Substance Use: No Preferred Language: Slovak Communication Ability: Effective Picker And Packer Required: No Beliefs That Will Affect Care: None Current Living Situation: Spouse Other Information That Helps Us Care for You: No Feels Safe at Home: Yes Safety Concerns: Feels Safe At This Time Assistive Devices: None Review of Systems Review of Systems: ROS per HPI, all other systems reviewed and negative Physical Exam Constitutional: WD/WN, vitals as above restless Eyes: PERRL, conjunctivae normal, anicteric sclerae ENMT: external ear and nose normal, oropharynx normal Respiratory: normal respiratory effort, lungs clear to auscultation Cardiovascular: Rate/Rhythm: regular rate and regular rhythm Heart Sounds: + murmur (grade 3/6, systolic) Vessels: normal peripheral pulses Extremities: no edema Gastrointestinal (Abdomen): normal bowel sounds, soft, nontender, no hepatosplenomegaly Musculoskeletal: no cyanosis or clubbing, extremities motor strength 5/5 Skin: no rashes, warm and dry Neurologic: PERRL, EOMI, accommodation nl, no face palsy, no dysarthria moves all extremities and awake; not confused Speech / Cognition: + abnormal speech (pressured) Motor/Sensory: no tremor and no pronator drift Psychiatric: Orientation: alert and oriented x 3 Affect: + anxious affect Results & Data Results & Data ([facility]) Vital Signs (Past 12 Hours) Vital Signs Temp Pulse Resp BP Pulse Ox 02/06/21 14:01 72 14 125/75 100 02/06/21 13:30 78 17 139/85 99 02/06/21 13:01 73 14 141/80 H 98 02/06/21 12:30 71 25 H 133/65 99 02/06/21 11:31 72 15 121/61 100 02/06/21 11:30 100 02/06/21 11:10 87 18 154/70 H 100 02/06/21 10:59 36.6 C 98 H 18 134/79 98 Laboratory Results Short CBC 02/06/21 Range/Units 11:26 WBC 5.57 (4.8-10.8) K/uL Hgb 12.5 (12.0-16.0) g/dL Hct 35.8 L (37-47) % Plt Count 129 L (130-400) K/uL BMP 02/06/21 02/06/21 11:26 15:30 Sodium 127 L 129 L Potassium 4.4 4.9 Chloride 96 L 98 Carbon Dioxide 24 26 BUN 29 H 26 H Creatinine 1.47 H 1.22 H Glucose 81 78 Calcium 8.8 8.7 Liver Function 02/06/21 Range/Units 11:26 Total Bilirubin 0.5 (0.2-1) mg/dl AST 113 H (15-37) U/L ALT 54 (12-78) U/L Alkaline Phosphatase 45 (45-117) U/L Albumin 3.5 (3.4-5.0) gm/dl Urine 02/06/21 Range/Units 12:28 Urine Color Yellow Urine Appearance Clear (Clear) Urine pH 6.0 (4.5-7.5) Ur Specific [place] 1.009 (1.000-1.030) Urine Protein Negative (Negative) Urine Glucose (UA) Negative (Negative) Diagnostic Findings Head CT 02/06/21 11:11 CT head/brain wo con CLINICAL HISTORY: Acute change in mental status COMPARISON STUDY: 01/27/2021 TECHNIQUE: Axial CT of the brain is performed from the vertex to the skull base. IV contrast was not administered for this examination. A dose lowering technique was utilized adhering to the principles of ALARA. CT DOSE: 638.56 mGycm FINDINGS: No intra or extra-axial mass lesions are visualized. There is no CT evidence of acute cortical infarction. There is no evidence of midline shift. There is no acute hemorrhage. No calvarial fractures are visualized. There are patchy white matter hypodensities likely on a small vessel basis. There is no evidence of pathologic ventricular dilatation. There is no evidence of acute sinusitis IMPRESSION: No acute intracranial findings ACT 112: Negative or not required by law. Electronically signed by: Vance Day M.D. 02/06/2021 12:14 PM Code Status & VTE Plan VTE Prophylaxis Plan VTE Prophylaxis will be ordered: No Supervising Physician Co-Signing Physician Notes Pt was seen and examined. Agreed with Naila VAZ exam, assessment and plan. 65 -year-old female with PMH HTN, paroxysmal atrial fibrillation anticoagulated on Coumadin, epilepsy, antiphospholipid antibody syndrome presents to the ED for evaluation of restlessness and abnormal movement. Symptoms have been going for the last few week where pt has been displayed involuntary movements and pressure speech. at bedside said that at night he is unable to fall a sleep due to the abnormal movement. Pt saw psych yesterday and was advised to see neurology. denies chest pain and shortness of breath. No abdominal pain, nausea, vomiting, or diarrhea. Denies fever, chills, lightheadedness, dizziness, diaphoresis, chest pain, SOB or syncopal events. In the ED, Na+ 127. COVID 19 positive on admission, but pt denies any respiratory symptoms. Head CT unremarkable. UA positive only for bacteria only. Will consult neurology. Will check Depakote and B12 level. will consider to get an MRI of brain. Continue IVF with NSS. Will consult nephrology. Check BMP to monitor your Na level. Will monitor for sign of URI due to the positive COVID 19. Continue monitor closely in tele. MD Abi
--- NOTE | 2021-02-06 16:49 | Electrocardiogram Report ---
Test Reason : Blood Pressure : / mmHG Vent. Rate : 076 BPM Atrial Rate : 076 BPM P-R Int : 144 ms QRS Dur : 078 ms QT Int : 382 ms P-R-T Axes : -18 043 056 degrees QTc Int : 429 ms Normal sinus rhythm Normal ECG When compared with ECG of 27-JAN-2021 16:53, No significant change was found Confirmed by Steve Foster ([id number]) on 02/06/2021 4:49:10 PM Referred By: Confirmed By:Chris Foster
[2021-02-06] MEDS ORDERED: ACETAMINOPHEN 325 MG TAB PO PRN (17:17)
[2021-02-06] MEDS: SODIUM CHLORIDE 0.9% 1000ML 1,000 ML IV SCH (17:43)
[2021-02-06] MEDS: cefTRIAXone SODIUM 1,000 MG in DEXTROSE 5% 50 ML IV SCH (17:47)
[2021-02-06] MEDS ORDERED: LORazepam 1 MG/2 ML VIAL IV PRN (18:55)
[2021-02-06] MEDS: lisinopril 2.5 MG TAB PO SCH (20:54)
[2021-02-06] MEDS: ROSUVASTATIN CALCIUM 5 MG TAB PO SCH (20:54)
[2021-02-06 21:52] LABS: Calcium 8.5 mg/dl (8.5-10.1); Creatinine Clr Calc Pharmacy 40.8 ml/min; Est GFR (African American) 53.5 ml/min; Est GFR (Non-African American) 46.1 ml/min; Potassium 4.3 mmol/L (3.5-5.1)
[2021-02-06] MEDS ORDERED: GADOBUTROL 65ML VIAL IV ONE (22:49)
[2021-02-07] MEDS: SODIUM CHLORIDE 0.9% 1000ML 1,000 ML IV SCH ×2 (06:10→17:34)
--- NOTE | 2021-02-07 07:48 | Magnetic Resonance Report ---
MR brain wo/w con HISTORY: 65 years-old Female AMS, restlessness acutely altered mental status COMPARISON: Head CT of same day TECHNIQUE: Multi planar multisequence MRI the brain was obtained both with and without the use of 6.0 mL Gadavist FINDINGS: No restricted diffusion. Study is mildly motion degraded. No acute intracranial hemorrhage, midline s hift, abnormal extra axial collection, hydrocephalus or intra-axial mass. 4 mm lipoma of the falx cer ebri near the vertex. Age-related involutional changes. Mild to moderate T2/FLAIR hyperintensities ab out the white matter are suggestive of chronic microvascular ischemic disease. Mesial temporal lobes are unremarkable. No evidence of mesial temporal sclerosis, cortical dysplasia or lambert matter heterot opia. Cerebral venous sinuses and major arterial flow voids appear patent. Trace mastoid effusions. P aranasal sinuses are clear. Prior bilateral lens repair. Unremarkable soft tissues. There is no abnor mal intra-axial or extra-axial enhancement. IMPRESSION: 1. No acute intracranial abnormality. No acute or subacute infarct. 2. No abnormal enhancement. ACT 112: Negative or not required by law. The above report was generated using voice recognition software. It may contain grammatical, syntax o r spelling errors. Electronically signed by: Christian Cárdenas M.D. 02/07/2021 7:47 AM
[2021-02-07 07:59] LABS: INR 4.4 (0.9-1.1); Prothrombin Time 39.5 Seconds (9.0-12.0)
[2021-02-07] MEDS: dilTIAZem HCL 180 MG CAPCR PO SCH (09:16)
[2021-02-07] MEDS: DIVALPROEX EXTENDED RELEASE 500 MG TAB PO SCH (09:16)
--- NOTE | 2021-02-07 13:33 | Consultation Report ---
NEPHROLOGY CONSULTATION DATE OF CONSULTATION: 02/07/2021 REASON FOR CONSULTATION: Mild hyponatremia. HISTORY OF PRESENT ILLNESS: The patient is a 65-year-old female who was admitted yesterday through [facility] Emergency Department where she presented with uncontrolled motor activity, anxiety, restlessness. She has been having these symptoms for the last few weeks and was at Emergency Department in the rec ent days and was prescribed Xanax without much help. Workup done in the Emergency Department showed sodium was 127. Overnight, she got IV fluid and with that, serum sodium has gone up to 130 now. She is not overtly symptomatic otherwise. ALLERGIES: ALLERGY LIST REVIEWED IN DETAIL AND PER THE RECONCILIATION LIST. MEDICATIONS: Home medication list included Fosamax, diltiazem, divalproex, lisinopril, Crestor, Coum fiona. PAST MEDICAL AND SURGICAL HISTORY: Includes antiphospholipid syndrome, anxiety, atrial fibrillation, chronic kidney disease stage III, hypertension, hyperlipidemia, epilepsy. Lab test positive for det ection of COVID-19 virus recently. Status post total abdominal hysterectomy and oophorectomy. FAMILY HISTORY: Positive for hypertension. SOCIAL HISTORY: No smoking, no alcohol. Lives at home. REVIEW OF SYSTEMS: As detailed in HPI; unless stated otherwise, 12 systems reviewed and negative. PHYSICAL EXAMINATION: VITAL SIGNS: Show blood pressure 125/66, pulse rate 86, temperature 36.6, oxygen saturation 99% on r oom air. GENERAL: A middle-aged white female who does not appear to be in any respiratory distress. HEENT: Mucous membranes moist. NECK: Supple. No jugular venous distention. CHEST: Bilaterally clear to auscultation. CARDIOVASCULAR: S1 and S2 regular. Soft systolic murmur heard. ABDOMEN: Soft, nontender. EXTREMITIES: Show no edema. NEUROLOGIC: Awake, alert, oriented x3, normal affect. LABORATORY TEST: Showed sodium was 127 on admission yesterday morning, this morning is 130. Creatin ine has also come down from 1.47 to 1.22. BUN is 24. Urine osmolality was 248. UA showed some keto denzel, specific gravity of 1.009. ASSESSMENT AND PLAN: A 65-year-old female admitted with multiple neurological complaints, still bein g investigated and was found to have mild hyponatremia, for which I have been consulted. Hyponatremia, which appears to be pretty mild. I am not 100% sure whether she has had hyponatremia i n the past or not, but with gentle IV hydration, it has gone up nicely and is now up to 130. She als o had mild prerenal type acute renal failure, which also seems to be getting better with IV fluid. G iven the fact that she is improving with IV fluid, I would have to call this as hypovolemic hyponatre faby for the time being. Continue IV fluid at least one more day. No further workup is needed for hy ponatremia or for the mild acute renal failure. At this point, we can do laboratories once daily. Job ID: [id number]
--- NOTE | 2021-02-07 13:50 | Electroencephalogram ---
EEG Procedure Note Date of Service February 07, 2021 Start / End Times Start Time: 1116 End Time: 1136 Referring Physician Naila VAZ History Several weeks of increasing anxiety and uncontrolled motor movements the patient was positive for COVID-19 Home Medication List Medication Instructions Recorded Confirmed Type alendronate 70 mg tablet 70 mg PO WK 01/27/21 02/06/21 History diltiazem HCl 180 mg 180 mg PO QAM 01/27/21 02/06/21 History capsule,extended release 24 hr (Cartia XT) divalproex 500 mg tablet,extended 1,000 mg PO QAM 01/27/21 02/06/21 History release 24 hr lisinopril 2.5 mg tablet 2.5 mg PO PM 01/27/21 02/06/21 History rosuvastatin 5 mg tablet 5 mg PO PM 01/27/21 02/06/21 History warfarin 5 mg tablet 2.5 - 5 mg PO DIRECTED 01/27/21 02/06/21 History acetaminophen 325 mg capsule 325 mg PO DAILY PRN 02/06/21 02/06/21 History (Tylenol) Inpatient Medication List Diltiazem HCl (Diltiazem Hcl 180 Mg Capcr) 180 mg PO [facility] Stop: 03/09/21 08:59 Last Admin: 02/07/21 09:16 Dose: 180 mg Documented by: [id number] Divalproex Sodium (Divalproex Extended Release 500 Mg Tab) [facility] Stop: 03/09/21 08:59 Last Admin: 02/07/21 09:16 Dose: 1,000 mg Documented by: [id number] Ceftriaxone Sodium 1,000 mg/ (Dextrose) 50 mls @ 100 mls/hr IV Q24H [facility]; Protocol Stop: 02/11/21 17:59 Last Infusion: 02/06/21 18:33 Dose: 0 mls/hr Documented by: [id number] Admin: 02/06/21 17:47 Dose: 100 mls/hr Documented by: [id number] Sodium Chloride (Nss 1000ml) 1,000 mls @ 80 mls/hr IV .[id number] [facility] Stop: 03/08/21 17:29 Last Admin: 02/07/21 06:10 Dose: 80 mls/hr Documented by: [id number] Infusion: 02/07/21 06:10 Dose: 80 mls/hr Documented by: [id number] Infusion: 02/06/21 21:05 Dose: 80 mls/hr Documented by: [id number] Infusion: 02/06/21 20:55 Dose: 0 mls/hr Documented by: [id number] Admin: 02/06/21 17:43 Dose: 80 mls/hr Documented by: [id number] Lisinopril (Lisinopril 2.5 Mg Tab) 2.5 mg PO PM [facility] Stop: 03/08/21 20:59 Last Admin: 02/06/21 20:54 Dose: 2.5 mg Documented by: [id number] Rosuvastatin Calcium (Rosuvastatin Calcium 5 Mg Tab) 5 mg PO PM [facility] Stop: 03/08/21 20:59 Last Admin: 02/06/21 20:54 Dose: 5 mg Documented by: [id number] Discontinued Medications Gadobutrol (Gadobutrol 65ml Vial) 6 ml IV ONCE ONE Stop: 02/06/21 22:50 Last Admin: 02/06/21 22:50 Dose: 6 ml Documented by: [id number] Sodium Chloride (Nss 1000ml) 1,000 mls @ 125 mls/hr IV .Q8H [facility] Stop: 03/08/21 12:44 Last Infusion: 02/06/21 17:54 Dose: 0 mls/hr Documented by: [id number] Admin: 02/06/21 12:58 Dose: 125 mls/hr Documented by: [id number] Lorazepam (Ativan) 1 mg in 2 mls @ 0.5 mls/min IV UD PRN PRN Reason: Anxiety Stop: 02/06/21 23:59 Last Admin: 02/06/21 20:54 Dose: 0.5 mls/min Documented by: [id number] Description This is a 21 electrode EEG with a single channel dedicated to limited EKG. The electrodes were placed in accordance with the International 10-20 system. This EEG was done as a bedside recording is of good technical quality. Video analysis of patient movement and behavior was obtained. Periodically the random movements of the extremities and head with eye movements but based on video these are not typical of either myoclonus or chorea or hemiballismus. They also do not appear to be consistent with seizure activity Photic stimulation was performed Drowsiness light sleep not obtained. Under these conditions between the abnormal movements EEG appears to be quite normal with an alpha rhythm of up to 9 to 10 Hz maximum frequency and of up to 20 V in amplitude which is maximum posterior head regions bilaterally symmetrical. Centrally theta activity is prominent is a moderate voltage of normal frequency there is also seen a generalized fashion over all head regions again without lateralizing properties. Beta activity seen bifrontally Photic simulation reveals a modest driving response no photo myogenic or chivo toparoxysmal components are noted and the abnormal movements do not increase during photic stimulation During the movements there is no evidence for cortical electroencephalographic abnormalities but rather a lot of muscle movement and eyeblink artifacts No clear-cut potentially epileptiform activity is seen during entire tracing Interpretation This is a normal EEG without evidence for focal generalized encephalopathy without evidence for potentially epileptogenic activity. There are periodic abnormal involuntary movements that are difficult to classify based on video analysis and clinical correlation is going to be required along with more direct patient observation but on superficial analysis these do not appear to be consistent with myoclonus or choreiform activity or hemiballismus Clinical Correlation See above comments. From a purely electrodiagnostic point of view the tracing i s normal. There is no electroencephalographic correlate with the abnormal involuntary movements and her clinical classification is difficult based on limited video analysis Ascencion Miramontes MD
[2021-02-07 15:02] LABS: 18KDIGG Band NON-REACTIVE; 23KDIGG Band NON-REACTIVE; 23KDIGM Band NON-REACTIVE; 28KDIGG Band NON-REACTIVE; 30KDIGG Band NON-REACTIVE; 39KDIGG Band NON-REACTIVE; 39KDIGM Band NON-REACTIVE; 41KDIGG Band NON-REACTIVE; 41KDIGM Band NON-REACTIVE; 45KDIGG Band NON-REACTIVE; 58KDIGG Band NON-REACTIVE; 66KDIGG Band NON-REACTIVE; 93KDIGG Band NON-REACTIVE; Lyme Antibodies, WB IgG NEGATIVE (NEGATIVE); Lyme Antibodies, WB IgM NEGATIVE (NEGATIVE)
--- NOTE | 2021-02-07 15:52 | Communication Note ---
Date of Service: February 07, 2021 Lashay is 65 years old is right-handed and is regularly followed by Dr. Becerra at [facility] and in the past has seen Dr. Aurelio Brunson of [facility] neurology who has followed her prior to his usp in 2014 for quite a number of years for nocturnal seizures and she has been on Depakote in a stable dose for years without any issue. Its not clear when her last seizure might have been but I think it was over 15 years ago or even longer She has an antiphospholipid antibody syndrome some low-grade chronic anxiety with a recent familial stress issue and is COVID-19 positive having not received the vaccine because of the antiphospholipid issue but reports Apsley no symptoms including lack of loss of taste or smell fever sweats chills sore throat cough malaise etc. and is not clear when she actually contracted the illness About 3 weeks ago she began to develop uncontrolled involuntary motor movements with mild ataxia of gait and falls and frequent dropping of objects but with no real cognitive impairment headaches numbness tingling motor weakness neck or back pain, bowel or bladder dysfunction etc. She vehemently denies anyone in her family suffering from a similar disorder and specifically denies anyone having R[place]'s chorea There is no history of centigrams chorea but she does have the underlying autoimmune disorder Medications at home in addition to the Depakote which is a now therapeutic level include Tylenol, alendronate, diltiazem, lisinopril, rosuvastatin, Coumadin and she has allergies to amoxicillin carbamazepine, Benadryl estrogens penicillin G phenytoin sulfa Cipro and phenobarbital but some of these are actually is not allergies but side effects such as depression and none of them have ever cause of involuntary motor movement and she denies any baseline tremor etc. Other problems include hypertension atrial fibrillation for which she is on warfarin therapy, dyslipidemia and hyponatremia but the latter is relatively mild and probably is chronic She was seen by psychiatry who did not feel she had significant psychiatric issues. In the emergency room several weeks ago she was recommended to take a b enzodiazepine but took several doses did not think it helped and stopped it Family history is again negative for similar movement disorder Social history is covered under the history and physical recorded on the chart and is not pertinent at this point other than the fact that she is a non-smoker minimal consumer of ethanol Systems review despite Covid positivity is completely negative for systemic complaints new issues referable to HEENT, cardiovascular pulmonary gastrointestinal genitourinary musculoskeletal dermatologic systems unknown some bruising that she has had from her involuntary motor movements and she does have insomnia due to the fact that the movements are preventing her from going to sleep Exam today reveals blood pressure 142/61 pulse 82 respirations are 18 she is afebrile She is awake alert oriented 3 spheres with no obvious recent or remote memory deficits She has frequent choreiform movements and at times tic-like movements of her face and extremities which are generalized involve primarily the upper extremities but the lower extremities as well they are not associated with any clear-cut myoclonus I looked at these movements on EEG video and was not impressed with the choreiform nature but and now more impressed with that diagnosis having seen her in person Reflexes were difficult to elicit because of poor relaxation but toes are downgoing Strength testing is normal Gross sensation is intact to all modalities She is able to hold her arms relatively still for finger-nose and [id number] testing which is interesting and the choreiform activity does not interfere with these activities MRI scans have shown no significant abnormalities other than some age- appropriate white matter changes, laboratory studies shown some coagulation effects of the Coumadin perhaps antiphospholipid antibody syndrome and hyponatremia but her TSH is normal and B12 is normal I am adding a connective tissue battery with an COLLIN screen rheumatoid factor ANCA screen and sed rate Cholesterol this is uncertain. There are some elements that suggest a functional disturbance i.e. the ability to suppress the movements to perform finger-nose [id number] testing test but this would have to be a diagnosis of exclusion in a woman with an underlying autoimmune disorder and positive Covid 19 Covid infections have been associated with movement disorders but these are generally myoclonus rarely choreiform and are quite rare and many of movement disorders are felt to be part of the Covid encephalopathy and may actually have a functional basis due to post covid PTSD/ anxiety. I do not think this latter situation applies here in a woman who is virtually asymptomatic She does have a potential autoimmune basis for inducing choreiform activity with her antiphospholipid antibody syndrome but the MRI scan shows no evidence for white matter changes no enhancement and no small infarctions in the basal ganglia but of course a disorder in which antibodies are directed at cell surface antigens rather than vascular targets might not have any findings on MRI At this point I would suggest a low-dose Zyprexa to suppress the dopamine system and an empiric trial of IV Solu-Medrol acting on the assumption this might be either part of her underlying autoimmunity or a Covid related autoimmune mediated issue "a bit of a stretch" I am going to discuss her case with Dr. Alex and review my suggestions with him and will check back with her tomorrow Ascencion Miramontes MD
--- NOTE | 2021-02-07 17:27 | Hospitalist Progress Note ---
Date of Service February 07, 2021 Assessment & Plan (1) Chorea: (2) Motor restlessness: Plan: Presenting on admission with worsening anxiety, restlessness, and uncontrolled motor movements Etiology unknown Possible due to underlying autoimmunity or Covid related autoimmune mediated CT had showed no acute intracranial abnormality MRI brain showed no acute intracranial abnormality. No acute or subacute infarct. Neurology on board Case. Case discussed with Dr. Miramontes that recommended Ativan twice daily and Zyprexa 5 mg at bedtime We will start on high-dose Solu-Medrol 1000 mg daily Will reassess tomorrow (3) E. coli UTI: Plan: Urine culture positive for E. coli on 01/27 Repeat urine culture on admission positive for gram-negative bacilli- E. Coli Continue IV ceftriaxone (4) Hyponatremia: Plan: Sodium 1.7 on admission Received IV fluids, sodium improved to 130 Nephrology on board Continue IV fluid for now Check BMP in a.m. (5) Lab test positive for detection of COVID-19 virus: Plan: Asymptomatic Treatment not indicated at this time Continue contact isolation (6) Atrial fibrillation: Plan: Rate controlled on diltiazem Coumadin on hold due to supratherapeutic INR Continue monitor PT/INR (7) HTN (hypertension): Plan: BP controlled continue diltiazem and lisinopril (8) Epilepsy: Plan: Depakote level 92 Continue Depakote Seizure precaution (9) CKD (chronic kidney disease), stage III: Plan: Baseline creatinine runs in the low-mid 1's Creatinine 1.2 today Continue monitor BMP Supratherapeutic INR INR on admission 4 Coumadin has been on hold, INR 4.4 today Continue monitor PT/INR (10) DVT prophylaxis: Plan: Coumadin on hold INR 4.4 Admission and Anticipated Discharge Date Admission Date: February 06, 2021 Subjective Patient was seen and examined for follow-up of abnormal movement Lying in bed with no acute distress watching TV Continue swinging upper extremity with no control Tested positive for Covid in the ER with no symptoms Denies any hallucination, palpitation, dizziness, shortness of breath, no plan Physical Exam Physical Exam: General- No acute distress Head- atraumatic Eyes- PERRL, EOMI, ENT- oropharynx clear Neck- supple, no JVD Lungs- clear to auscultation Heart- regular rhythm; +systolic murmur Abdomen- normal bowel sounds, soft, nontender Extremities- no calf tenderness Neuro- alert, oriented x 3; +pressured speech, +choreiform movements Skin- warm & dry Results & Data Results & Data ([facility]) Vital Signs (Past 12 Hours) Vital Signs Temp Pulse Pulse Resp BP Pulse Ox 02/07/21 15:40 36.9 C 82 18 142/61 H 96 02/07/21 15:15 75 02/07/21 11:00 83 16 147/71 H 97 02/07/21 09:31 76 02/07/21 07:39 36.6 C 86 18 125/66 99
[2021-02-07] MEDS: cefTRIAXone SODIUM 1,000 MG in DEXTROSE 5% 50 ML IV SCH (17:35)
[2021-02-07] MEDS: methylPREDNISolone 1,000 MG in DEXTROSE 5% 250 ML IV SCH (19:56)
[2021-02-07] MEDS: ROSUVASTATIN CALCIUM 5 MG TAB PO SCH (20:09)
[2021-02-07] MEDS: OLANZapine 5 MG TABLET PO SCH (20:09)
[2021-02-07] MEDS: LORazepam 0.5 MG TAB PO SCH (20:09)
[2021-02-07] MEDS: lisinopril 2.5 MG TAB PO SCH (20:09)
[2021-02-08] MEDS ORDERED: OLANZapine 10 MG/2.1 ML SDV IM STA (03:10)
[2021-02-08] MEDS: SODIUM CHLORIDE 0.9% 1000ML 1,000 ML IV SCH ×2 (08:07→19:52)
[2021-02-08] MEDS: LORazepam 0.5 MG TAB PO SCH ×2 (08:07→20:22)
[2021-02-08] MEDS: methylPREDNISolone 1,000 MG in DEXTROSE 5% 250 ML IV SCH (08:07)
[2021-02-08] MEDS: DIVALPROEX EXTENDED RELEASE 500 MG TAB PO SCH (08:11)
[2021-02-08] MEDS: dilTIAZem HCL 180 MG CAPCR PO SCH (08:11)
[2021-02-08 08:22] LABS: INR 2.4 (0.9-1.1); Prothrombin Time 22.7 Seconds (9.0-12.0)
[2021-02-08 08:38] LABS: BUN Creatinine Ratio 19.9 (10-20); Calcium 8.5 mg/dl (8.5-10.1); Creatinine Clr Calc Pharmacy 55.6 ml/min; Est GFR (African American) 69.7 ml/min; Est GFR (Non-African American) 60.1 ml/min; Potassium 4.4 mmol/L (3.5-5.1)
[2021-02-08 12:31] LABS: 7-Aminoclonaz, Confirm NEGATIVE ng/mL (<25); Hydro-Alp Ur, GC/MS 60 ng/mL (<25); Hydroxyethylflurazepam, Conf NEGATIVE ng/mL (<50); Hydroxymidazolam Ur, GC/MS NEGATIVE ng/mL (<50); Hydroxytriazolam NEGATIVE ng/mL (<50); Lorazepam, Ur GC/MS NEGATIVE ng/mL (<50); Nordiazepam, Confirm NEGATIVE ng/mL (<50); Oxazepam Ur, GC/MS NEGATIVE ng/mL (<50); Temazepam, Confirm NEGATIVE ng/mL (<50)
--- NOTE | 2021-02-08 13:27 | Communication Note ---
Date of Service: February 08, 2021 Lashay looks a little better this afternoon but her speech seems more dysarthric than yesterday. Some of this may reflect the medications that were started in the form of Zyprexa 5 mg and Ativan 1 mg at bedtime and another 1 mg of Ativan this morning She did receive 1000 mg of Solu-Medrol last night and talks about perhaps some hallucinations that might have occurred after this. This is very vague and otherwise she seems fairly alert and cooperative and oriented and the movements which were fairly prominent yesterday are still present but are less flailing and impairing in the lower extremity movements were virtually nonexistent today. Again the speech is a little more slurred and there are occasional choreiform movements of the head but the tic-like movements of her face seem to be gone the staring at times I saw her Cause for this remains uncertain. She is Covid positive and probably has been so for several weeks and this may be a very rare manifestation of Covid 19 without any other systemic issues but this would be somewhat atypical She also has an antiphospholipid antibody syndrome and this is one of the connective tissue disorders that correlates with development of choreiform movement disorders Other causes however include paraneoplastic antibody syndromes among them NMDA, G AD, Amphysin and even anti Hu antibodies and others I would suggest to continue the current medications and observe her tomorrow to see if there is more improvement. If not we may increase the Zyprexa to 7.5 mg and continue the Ativan at bedtime and as needed during the day. I plan on using 4 days of high IV Solu-Medrol doses and then drop back to prednisone probably 80 mg a day I would suggest that we try to get CT scans of the chest abdomen and pelvis with and without contrast as a screen for obvious neoplasia in those areas rather than going through a search for paraneoplastic antibodies which could be done on an outpatient basis I have also obtained a serum ammonia level today but the results are not yet back I will plan visit to the bedside tomorrow and have communicated my thinking to Dr. Alex and will have him plan accordingly regarding imaging studies and the logistics involved Ultimately we may end up referring her to our movement disorders group in [place] for further evaluation and diagnostic testing Ascencion Miramontes MD
--- NOTE | 2021-02-08 13:30 | Nephrology Progress Note ---
Date of Service February 08, 2021 Assessment & Plan Admission and Anticipated Discharge Date Admission Date: February 06, 2021 Subjective PHYSICAL EXAMINATION: as per exam done 02/07 GENERAL: A middle-aged white female who does not appear to be in any respiratory distress. HEENT: Mucous membranes moist. NECK: Supple. No jugular venous distention. CHEST: Bilaterally clear to auscultation. CARDIOVASCULAR: S1 and S2 regular. Soft systolic murmur heard. ABDOMEN: Soft, nontender. EXTREMITIES: Show no edema. NEUROLOGIC: Awake, alert, oriented x3, normal affect. LABORATORY TEST: Showed sodium was 127 on admission yesterday morning, this morning is 128 again dropped a bit. Creatinine has also come down Urine osmolality was 248. UA showed some ketones, specific gravity of 1.009. A/p 1 Hyponatremia--Some combination of volume Depletion and Some degree of SIADH so will treat for both. NS @ 80/hr Salt tab 1 gm bid. Lasix 20 iv bid. may need Urea-NA also. Results & Data ([facility]) Vital Signs (Past 12 Hours) Vital Signs Temp Pulse Pulse Resp BP Pulse Ox 02/08/21 12:27 36.3 C L 78 20 125/84 99 02/08/21 09:02 58 L 02/08/21 06:48 36.6 C 69 17 128/73 97 02/08/21 02:40 36.5 C 100 H 18 138/82 99
[2021-02-08] MEDS: FUROSEMIDE 20 MG in SYRINGE 0 ML IV SCH ×2 (15:09→20:22)
[2021-02-08] MEDS ORDERED: FUROSEMIDE 40 MG/4 ML VIAL IV ONE (15:09)
[2021-02-08] MEDS: cefTRIAXone SODIUM 1,000 MG in DEXTROSE 5% 50 ML IV SCH (17:29)
[2021-02-08] MEDS: WARFARIN SOD 4 MG TAB PO SCH (17:29)
[2021-02-08] MEDS: lisinopril 2.5 MG TAB PO SCH (20:22)
[2021-02-08] MEDS: OLANZapine 5 MG TABLET PO SCH (20:22)
[2021-02-08] MEDS: SODIUM CHLORIDE 1 GM TABLET PO SCH (20:22)
[2021-02-08] MEDS: ROSUVASTATIN CALCIUM 5 MG TAB PO SCH (20:22)
--- NOTE | 2021-02-08 20:58 | Hospitalist Progress Note ---
Date of Service February 08, 2021 Assessment & Plan (1) Chorea: (2) Motor restlessness: Plan: Presenting on admission with worsening anxiety, restlessness, and uncontrolled motor movements Etiology unknown Possible due to underlying autoimmunity or Covid related autoimmune mediated CT had showed no acute intracranial abnormality MRI brain showed no acute intracranial abnormality. No acute or subacute infarct. Neurology on board Continue Ativan twice daily and Zyprexa 5 mg at bedtime High-dose Solu-Medrol 1000 mg given yesterday and today Transition to p.o. prednisone 100 mg daily starting tomorrow He is discussed with neurology recommend to obtain a CT chest, abdomen and pelvic with and without contrast to rule out any underlying malignancy Continue monitor closely (3) E. coli UTI: Plan: Urine culture positive for E. coli on 01/27 Repeat urine culture on admission positive for gram-negative bacilli- E. Coli Continue IV ceftriaxone Will transition to p.o. on discharge (4) Hyponatremia: Plan: Sodium 127 on admission Received IV fluids, sodium improved to 130 Nephrology on board Continue IV fluid with NS @ 80/hr and Salt tab 1 gm bid. We will add Lasix 20 iv bid. Continue monitor BMP (5) Lab test positive for detection of COVID-19 virus: Plan: Asymptomatic Treatment not indicated at this time Continue contact isolation (6) Atrial fibrillation: Plan: Rate controlled on diltiazem Coumadin on hold due to supratherapeutic INR Continue monitor PT/INR (7) HTN (hypertension): Plan: BP controlled continue diltiazem and lisinopril (8) Epilepsy: Plan: Depakote level 92 Continue Depakote Seizure precaution (9) CKD (chronic kidney disease), stage III: Plan: Baseline creatinine runs in the low-mid 1's Creatinine 1.2 today Continue monitor BMP Supratherapeutic INR INR on admission 4 then increased to 4.4 Coumadin was on hold INR today 2.4, will resume Coumadin (10) DVT prophylaxis: Plan: Coumadin resumed, INR 2.4 Admission and Anticipated Discharge Date Admission Date: February 06, 2021 Subjective Patient was seen and examined for follow-up of abnormal movement Lying in bed with no acute eating dinner Her abnormal upper extremities movement are less. But her speech seems to get worst Seems she had some hallucination last night due to the steroid Denies any hallucination, palpitation, dizziness, shortness of breath Physical Exam Physical Exam: General- No acute distress Head- atraumatic Eyes- PERRL, EOMI, ENT- oropharynx clear Neck- supple, no JVD Lungs- clear to auscultation Heart- regular rhythm; +systolic murmur Abdomen- normal bowel sounds, soft, nontender Extremities- no calf tenderness Neuro- alert, oriented x 3; + dysarthric speech, +choreiform movements improved Skin- warm & dry Results & Data Results & Data ([facility]) Vital Signs (Past 12 Hours) Vital Signs Temp Pulse Pulse Resp BP BP Pulse Ox 02/08/21 19:26 36.5 C 75 14 129/74 98 02/08/21 15:37 36.4 C L 73 17 112/68 98 02/08/21 12:27 36.3 C L 78 20 125/84 99 02/08/21 09:02 58 L
[2021-02-09] MEDS ORDERED: OPTIRAY 320 100ml IV ONE (00:50)
[2021-02-09] MEDS: SODIUM CHLORIDE 0.9% 1000ML 1,000 ML IV SCH ×2 (01:21→14:06)
[2021-02-09 06:15] LABS: INR 2.1 (0.9-1.1); Prothrombin Time 19.8 Seconds (9.0-12.0)
[2021-02-09 06:52] LABS: BUN Creatinine Ratio 18.4 (10-20); Calcium 8.4 mg/dl (8.5-10.1); Creatinine Clr Calc Pharmacy 43.3 ml/min; Est GFR (African American) 57.4 ml/min; Est GFR (Non-African American) 49.5 ml/min; Potassium 3.8 mmol/L (3.5-5.1)
[2021-02-09] MEDS: FUROSEMIDE 20 MG in SYRINGE 0 ML IV SCH ×2 (08:55→20:07)
[2021-02-09] MEDS: LORazepam 0.5 MG TAB PO SCH ×2 (08:55→20:19)
[2021-02-09] MEDS: SODIUM CHLORIDE 1 GM TABLET PO SCH ×2 (08:56→20:07)
[2021-02-09] MEDS: dilTIAZem HCL 180 MG CAPCR PO SCH (08:56)
[2021-02-09] MEDS: DIVALPROEX EXTENDED RELEASE 500 MG TAB PO SCH (08:56)
--- NOTE | 2021-02-09 08:56 | CT Scan Report ---
CHEST CT WITH CONTRAST, ABDOMEN AND PELVIS CT WITH INTRAVENOUS AND ORAL CONTRAST CT DOSE: 484.21 mGy.cm HISTORY: Weakness. r/o any malignancy TECHNIQUE: Multiaxial CT images of the chest, abdomen, and pelvis were performed following the intrav enous administration of contrast. Oral contrast was also administered for the abdomen and pelvis CT. A dose lowering technique was utilized adhering to the principles of ALARA. COMPARISON: None. FINDINGS: Chest CT: No pneumothorax. The central airways are patent. The lungs are essentially clear. No suspic ious lytic or blastic osseous lesions. No mediastinal or hilar lymphadenopathy. The heart is normal i n size. No pleural effusion. No pericardial effusion. Normal caliber esophagus. The main pulmonary ar teries are patent. Mild calcified plaque within the normal caliber abdominal aorta. Abdomen/pelvis CT: No pneumoperitoneum. No pneumatosis. No suspicious lytic or blastic osseous lesion s. There is a 1.8 cm peripheral hypodensity within the posterior segment of the right hepatic lobe. T he gallbladder is contracted. The spleen, adrenal glands, and pancreas are unremarkable. There is nicanor ateral cortical renal scarring/thinning. There are few small hypodense lesions within the left kidney with the largest measuring 1 cm. These are totally too small to characterize but statistically repre sent cysts. No hydronephrosis. The main portal vein is patent. No retroperitoneal lymphadenopathy. No rmal caliber abdominal aorta. The bladder is unremarkable. Prior hysterectomy. Normal appendix. Colon ic diverticulosis. No evidence for acute diverticulitis. No bowel wall thickening or obstruction. IMPRESSION: 1. No significant abnormality identified within the chest. 2. A 1.8 cm peripheral hypodensity within the posterior segment of the right hepatic lobe. This is te chnically indeterminate but favors a benign lesion such as a hemangioma. 3. No bowel wall thickening or obstruction. 4. Hysterectomy. ACT 112: Negative or not required by law. Electronically signed by: Parth Worley M.D. 02/09/2021 8:54 AM
--- NOTE | 2021-02-09 14:11 | Communication Note ---
Date of Service: February 09, 2021 I saw Lashay today and discussed her case with the nursing staff who feel like I do that the movements are less evident but she still is unsteady on her feet requires a walker and might benefit from physical therapy. Her speech is clear today. She still has little insomnia. We have cut the steroids down to 100 mg orally and ongoing suggest we could even further to 80 mg a day for a while and the Zyprexa remains at 5 mg at bedtime and Ativan 1 mg twice a day On exam she still has some slight dysarthria, but thinking is a little tangential and disorganized but this is her baseline, she denies any hallucinations such as when she had night before last which may have been related to the high-dose Solu-Medrol and during conversations had only a few fleeting choreoathetoid movements and some facial grimacing and could hold her hands outstretched for long periods of time without any movements interfering with him, had no abnormal movements of the lower extremities and had no cerebellar dysmetria on finger-nose or [id number] testing. There continues to be no lateralizing neurologic deficits involving the motor or sensory spheres and reflexes etc. unremarkable The ammonia level is normal or actually low and it would been very unusual for Depakote-induced hyperammonemia to present with a choreiform movement disorder CT of the chest abdomen pelvis show only benign appearing hepatic cyst and no obvious mass lesions and interestingly enough in light of her COVID-19 status, no groundglass opacities on prednisone 80 mg, raises Zyprexa 7.5 mg, continue the Ativan, and chest CT component. Assuming no ovarian tumor mediastinal or abdominal lymphadenopathy no pancreatic mass etc. While this does not eliminate carcinoma as a potential cause concerning is a strong argument against a significant underlying malignancy and at this point I think any paraneoplastic markers could be done on an outpatient basis My feelings are this is probably going to proves to be part of her antiphospholipid antibody syndrome and hopefully will respond to a slow tapering course of prednisone and modest doses of Zyprexa which is providing some week dopamine receptor blocking without major concerns for induction of a tardive dyskinetic syndrome or producing excessive sedation Overall then I am suggesting we get physical therapy involved and asked specifically whether she is felt to be safe to potentially return home and if so what assistive devices she might need. Alternatively would she need a stay at a rehabilitation facility. We are going to drop the prednisone to 80 mg as suggested above, raising Zyprexa 7.5 mg at bedtime, continue the Ativan 1 mg twice a day and hopefully with this program will be able to either return home or go to a rehabilitation facility On an outpatient basis we may do some paraneoplastic antibody titers and investigate the possibility of an underlying [place]'s disease genotype We will continue to follow her along. I have communicated my thoughts to Dr. Abi Miramontes MD
--- NOTE | 2021-02-09 14:13 | Nephrology Progress Note ---
Date of Service February 09, 2021 Assessment & Plan Admission and Anticipated Discharge Date Admission Date: February 06, 2021 Subjective Subjective--No new issues. Has received enough iv fluids now. PHYSICAL EXAMINATION: as per exam done 02/07 GENERAL: A middle-aged white female who does not appear to be in any respiratory distress. HEENT: Mucous membranes moist. NECK: Supple. No jugular venous distention. CHEST: Bilaterally clear to auscultation. CARDIOVASCULAR: S1 and S2 regular. Soft systolic murmur heard. ABDOMEN: Soft, nontender. EXTREMITIES: Show no edema. NEUROLOGIC: Awake, alert, oriented x3, normal affect. LABORATORY TEST: Showed sodium was 127 on admission , 129-130 last few times. Creatinine has also come down Urine osmolality was 248. UA showed some ketones, specific gravity of 1.009. A/p 1 Hyponatremia--Some combination of volume Depletion and Some degree of SIADH so will treat for both. NS--D/c Now. has gotiv fluid for 3 days now. Salt tab 1 gm bid. Lasix 20 iv bid. Add Urea-NA 15 gm bid. FFR--1500 ml per day labs Can be daily now. Results & Data ([facility]) Vital Signs (Past 12 Hours) Vital Signs Temp Pulse Pulse Resp BP Pulse Ox 02/09/21 11:51 36.3 C L 84 18 127/81 97 02/09/21 09:54 87 02/09/21 08:07 36.6 C 85 18 136/79 97 02/09/21 03:45 36.5 C 90 17 128/70 100
[2021-02-09] MEDS: WARFARIN SOD 4 MG TAB PO SCH (14:58)
[2021-02-09] MEDS: cefTRIAXone SODIUM 1,000 MG in DEXTROSE 5% 50 ML IV SCH (17:10)
--- NOTE | 2021-02-09 19:51 | Hospitalist Progress Note ---
Date of Service February 09, 2021 Assessment & Plan (1) Chorea: (2) Motor restlessness: Plan: Presenting on admission with worsening anxiety, restlessness, and uncontrolled motor movements Etiology unknown Possible due to underlying autoimmunity or Covid related autoimmune mediated CT had showed no acute intracranial abnormality MRI brain showed no acute intracranial abnormality. No acute or subacute infarct. CT chest/abd/pelvis showed a 1.8 cm peripheral hypodensity within the posterior segment of the right hepatic lobe. This is technically indeterminate but favors a benign lesion such as a hemangioma. Neurology on board Continue Ativan twice daily and Zyprexa increased to 7.5 mg at bedtime High-dose Solu-Medrol 1000 mg given yesterday and today Transition to p.o. prednisone 100 mg daily, will decrease to 80 mg daily Will need outpatient paraneoplastic antibody titers and investigate an underlying [place]'s disease genotype PT/OT eval (3) E. coli UTI: Plan: Urine culture positive for E. coli on 01/27 Repeat urine culture on admission positive for gram-negative bacilli- E. Coli Continue IV ceftriaxone Will transition to p.o. on discharge (4) Hyponatremia: Plan: Sodium 127 on admission Received IV fluids, sodium improved to 129 Discontinued IV fluid with NS Continue Lasix 20 iv bid and Salt tablet Continue monitor BMP (5) Lab test positive for detection of COVID-19 virus: Plan: Asymptomatic Treatment not indicated at this time Continue contact isolation (6) Atrial fibrillation: Plan: Rate controlled on diltiazem Coumadin on hold due to supratherapeutic INR Continue monitor PT/INR (7) HTN (hypertension): Plan: BP controlled continue diltiazem and lisinopril (8) Epilepsy: Plan: Depakote level 92 Continue Depakote Seizure precaution (9) CKD (chronic kidney disease), stage III: Plan: Baseline creatinine runs in the low-mid 1's Creatinine 1.2 today Continue monitor BMP Supratherapeutic INR INR on admission 4 then increased to 4.4 Coumadin was on hold INR today 2.1, continue Coumadin (10) DVT prophylaxis: Plan: On Coumadin, INR 2.1 Admission and Anticipated Discharge Date Admission Date: February 06, 2021 Subjective Patient was seen and examined for follow-up of abnormal movement and speech dysarthria Lying in bed with no acute distress She continues to have less abdominal movement and her speech improved as well She said that she is feeling a lot better Denies any hallucination, palpitation, dizziness, shortness of breath Physical Exam Physical Exam: General- No acute distress Head- atraumatic Eyes- PERRL, EOMI, ENT- oropharynx clear Neck- supple, no JVD Lungs- clear to auscultation Heart- regular rhythm; +systolic murmur Abdomen- normal bowel sounds, soft, nontender Extremities- no calf tenderness Neuro- alert, oriented x 3; + dysarthric speech, +choreiform movements improved Skin- warm & dry Results & Data Results & Data ([facility]) Vital Signs (Past 12 Hours) Vital Signs Temp Pulse Pulse Resp BP Pulse Ox 02/09/21 16:57 36.8 C 76 18 124/77 97 02/09/21 11:51 36.3 C L 84 18 127/81 97 02/09/21 09:54 87 02/09/21 08:07 36.6 C 85 18 136/79 97
[2021-02-09] MEDS: UREA (UREA-NA) 15 GM PACK PO SCH (20:07)
[2021-02-09] MEDS: lisinopril 2.5 MG TAB PO SCH (20:08)
[2021-02-09] MEDS: ROSUVASTATIN CALCIUM 5 MG TAB PO SCH (20:08)
[2021-02-09] MEDS: OLANZAPINE 2.5 MG TAB PO SCH (20:18)
[2021-02-10 08:27] LABS: INR 3.2 (0.9-1.1); Prothrombin Time 29.2 Seconds (9.0-12.0)
[2021-02-10 08:49] LABS: BUN Creatinine Ratio 36.5 (10-20); Calcium 8.8 mg/dl (8.5-10.1); Creatinine Clr Calc Pharmacy 48.3 ml/min; Est GFR (African American) 65.6 ml/min; Est GFR (Non-African American) 56.6 ml/min; Potassium 3.7 mmol/L (3.5-5.1)
[2021-02-10] MEDS ORDERED: predniSONE 20 MG TAB PO SCH (09:00)
[2021-02-10] MEDS: DIVALPROEX EXTENDED RELEASE 500 MG TAB PO SCH (09:27)
[2021-02-10] MEDS: dilTIAZem HCL 180 MG CAPCR PO SCH (09:27)
[2021-02-10] MEDS: SODIUM CHLORIDE 1 GM TABLET PO SCH ×2 (09:28→20:20)
[2021-02-10] MEDS: UREA (UREA-NA) 15 GM PACK PO SCH ×2 (09:29→20:22)
[2021-02-10] MEDS: LORazepam 0.5 MG TAB PO SCH (10:22)
--- NOTE | 2021-02-10 11:37 | Nephrology Progress Note ---
Date of Service February 10, 2021 Assessment & Plan Admission and Anticipated Discharge Date Admission Date: February 06, 2021 Subjective Subjective--No new issues. Has received enough iv fluids now. PHYSICAL EXAMINATION: as per exam done 02/07 GENERAL: A middle-aged white female who does not appear to be in any respiratory distress. HEENT: Mucous membranes moist. NECK: Supple. No jugular venous distention. CHEST: Bilaterally clear to auscultation. CARDIOVASCULAR: S1 and S2 regular. Soft systolic murmur heard. ABDOMEN: Soft, nontender. EXTREMITIES: Show no edema. NEUROLOGIC: Awake, alert, oriented x3, normal affect. LABORATORY TEST: Showed sodium was 127 on admission , 129-130 last few times. Creatinine has also come down Urine osmolality was 248. UA showed some ketones, specific gravity of 1.009. A/p 1 Hyponatremia--Some combination of volume Depletion and Some degree of SIADH so will treat for both. Salt tab 1 gm bid. Lasix 20 iv bid. Add Urea-NA 15 gm bid. FFR--1500 ml per day labs Can be daily now. Results & Data ([facility]) Vital Signs (Past 12 Hours) Vital Signs Temp Pulse Pulse Resp BP Pulse Ox 02/10/21 09:02 36.6 C 81 18 133/78 96 02/10/21 08:00 73 02/10/21 03:45 36.3 C L 74 18 134/74 02/10/21 00:30 36.4 C L 85 18 148/81 H 97 02/09/21 23:41 84
[2021-02-10] MEDS: FUROSEMIDE 20 MG in SYRINGE 0 ML IV SCH ×2 (13:19→20:22)
--- NOTE | 2021-02-10 16:16 | Communication Note ---
Date of Service: February 10, 2021 Lashay looks much better today. Her speech is clearer with minimal dysarthria and she still has some facial grimacing and minor choreiform movements of her upper extremities but lower extremity movements and essentially gone and she can still hold her hands outstretched finger-nose testing and other complex tasks with her upper extremities without being involved with choreiform activity so at this point I think it is time we begin to back off on the steroids which I am not sure have helped and may be contributing to her persistent insomnia which s soluld have responded to some degree to the milligram of Ativan and now 7.5 mg of Zyprexa She has been seen by physical therapy and tells me that she was able to walk with a walker and ambulate fairly well so my suspicions are she will be able to go home rather than needing a rehabilitation facility I recommendation would be to drop the prednisone to 60 mg orally in the morning tomorrow then 40 mg the following day, 20 mg a day after 10 mg a day after that and stop it. Her sed rate is normal the COLLIN rheumatoid factor and ANCA titers are still pending but I am not impressed that the steroids have done that much and I think her response reflects more effective than Zyprexa and anything else. Certainly tapering off the steroids rapidly at this point seems reasonable and if the choreiform activity reemerges we can always restart the I would keep the Zyprexa at 7.5 mg, the Ativan 1 mg twice a day and only to make another visit tomorrow Hopefully we can get her discharged home by the end of the week and we can follow her up in the clinic and I may be able to arrange for an official consultation with our movement disorders group perhaps even by video on outpatient basis I see no point in doing any immunologic testing for paraneoplastic antibodies at this time and will reserve the genetic testing for Tom's disease for an outpatient visit Ascencion Miramontes MD
[2021-02-10] MEDS: WARFARIN SOD 4 MG TAB PO SCH (17:02)
[2021-02-10] MEDS: cefTRIAXone SODIUM 1,000 MG in DEXTROSE 5% 50 ML IV SCH (17:02)
--- NOTE | 2021-02-10 18:28 | Hospitalist Progress Note ---
Date of Service February 10, 2021 Assessment & Plan (1) Chorea: (2) Motor restlessness: Plan: Presenting on admission with worsening anxiety, restlessness, and uncontrolled motor movements Etiology unknown Possible due to underlying autoimmunity or Covid related autoimmune mediated CT had showed no acute intracranial abnormality MRI brain showed no acute intracranial abnormality. No acute or subacute infarct. CT chest/abd/pelvis showed a 1.8 cm peripheral hypodensity within the posterior segment of the right hepatic lobe. This is technically indeterminate but favors a benign lesion such as a hemangioma. Neurology on board High-dose Solu-Medrol 1000 mg given for 2 days then Transition to p.o. prednisone 100 mg, then 80 mg today Will taper prednisone to 60mg tomorrow, then 40 mg the following day, 20 mg a day after 10 mg a day after that and stop it. ESR is normal COLLIN rheumatoid factor and ANCA titers are still pending Continue Ativan, will increase ativan to 1mg HS and continue Zyprexa 7.5 mg at bedtime Clinically improves significantly (3) E. coli UTI: Plan: Urine culture positive for E. coli on 01/27 Repeat urine culture on admission positive for gram-negative bacilli- E. Coli Continue IV ceftriaxone Will transition to p.o. on discharge (4) Hyponatremia: Plan: Sodium 127 on admission Received IV fluids, sodium improved to 134 Discontinued IV fluid with NS Continue Lasix 20 iv bid and Salt tablet for today Continue monitor BMP (5) Lab test positive for detection of COVID-19 virus: Plan: Asymptomatic Treatment not indicated at this time Continue contact isolation (6) Atrial fibrillation: Plan: Rate controlled on diltiazem Coumadin on hold due to supratherapeutic INR Continue monitor PT/INR (7) HTN (hypertension): Plan: BP controlled continue diltiazem and lisinopril (8) Epilepsy: Plan: Depakote level 92 Continue Depakote Seizure precaution (9) CKD (chronic kidney disease), stage III: Plan: Baseline creatinine runs in the low-mid 1's Creatinine 1.2 today Continue monitor BMP Supratherapeutic INR INR on admission 4 then increased to 4.4, Coumadin was held INR today 3.2, continue Coumadin (10) DVT prophylaxis: Plan: On Coumadin, INR 3.2 Admission and Anticipated Discharge Date Admission Date: February 06, 2021 Subjective Patient was seen and examined for follow-up of abnormal movement and speech dysarthria Sitting in chair with no acute distress She is doing much better her abnormal movement and her speech improved She said that she is feeling a lot better She was walking in the hallway Denies any hallucination, palpitation, dizziness, shortness of breath Physical Exam Physical Exam: General- No acute distress Head- atraumatic Eyes- PERRL, EOMI, ENT- oropharynx clear Neck- supple, no JVD Lungs- clear to auscultation Heart- regular rhythm; +systolic murmur Abdomen- normal bowel sounds, soft, nontender Extremities- no calf tenderness Neuro- alert, oriented x 3; + dysarthric speech, +choreiform movements improved Skin- warm & dry Results & Data Results & Data ([facility]) Vital Signs (Past 12 Hours) Vital Signs Temp Pulse Pulse Resp BP Pulse Ox 02/10/21 16:04 82 02/10/21 15:56 36.5 C 75 18 102/61 96 02/10/21 12:01 36.4 C L 80 16 119/67 97 02/10/21 09:02 36.6 C 81 18 133/78 96 02/10/21 08:00 73
[2021-02-10] MEDS ORDERED: bisacodyL 5 MG TABEC PO ONE (20:10)
[2021-02-10] MEDS: ROSUVASTATIN CALCIUM 5 MG TAB PO SCH (20:20)
[2021-02-10] MEDS: lisinopril 2.5 MG TAB PO SCH (20:21)
[2021-02-10] MEDS: LORazepam 1 MG TAB PO SCH (20:21)
[2021-02-10] MEDS: OLANZAPINE 2.5 MG TAB PO SCH (21:54)
[2021-02-11] MEDS: FUROSEMIDE 20 MG in SYRINGE 0 ML IV SCH (07:57)
[2021-02-11] MEDS: dilTIAZem HCL 180 MG CAPCR PO SCH (07:57)
[2021-02-11] MEDS: LORazepam 0.5 MG TAB PO SCH (07:58)
[2021-02-11] MEDS: SODIUM CHLORIDE 1 GM TABLET PO SCH (07:58)
[2021-02-11] MEDS: DIVALPROEX EXTENDED RELEASE 500 MG TAB PO SCH (07:59)
[2021-02-11] MEDS: UREA (UREA-NA) 15 GM PACK PO SCH (07:59)
[2021-02-11] MEDS ORDERED: predniSONE 20 MG TAB PO ONE (09:00)
[2021-02-11] MEDS ORDERED: predniSONE 20 MG TAB PO SCH (09:00)
--- NOTE | 2021-02-11 09:26 | Nephrology Progress Note ---
Date of Service February 11, 2021 Assessment & Plan Admission and Anticipated Discharge Date Admission Date: February 06, 2021 Subjective Subjective--No new issues. labs pending today PHYSICAL EXAMINATION: as per exam done 02/07 GENERAL: A middle-aged white female who does not appear to be in any respiratory distress. HEENT: Mucous membranes moist. NECK: Supple. No jugular venous distention. CHEST: Bilaterally clear to auscultation. CARDIOVASCULAR: S1 and S2 regular. Soft systolic murmur heard. ABDOMEN: Soft, nontender. EXTREMITIES: Show no edema. NEUROLOGIC: Awake, alert, oriented x3, normal affect. LABORATORY TEST: Showed sodium was 127 on admission , last one 134 Creatinine has also come down Urine osmolality was 248. UA showed some ketones, specific gravity of 1.009. A/p 1 Hyponatremia--Some combination of volume Depletion and Some degree of SIADH so will treat for both. Salt tab 1 gm bid. Lasix 20 iv bid. Can stop if Na even higher. FFR--1500 ml per day labs Can be daily now. Results & Data ([facility]) Vital Signs (Past 12 Hours) Vital Signs Temp Pulse Pulse Resp BP BP Pulse Ox 02/11/21 08:44 71 02/11/21 07:10 36.4 C L 84 19 134/78 97 02/11/21 04:08 36.3 C L 88 17 144/83 H 96 02/10/21 23:47 90 02/10/21 23:11 36.5 C 77 15 132/81
[2021-02-11 10:01] LABS: INR 4.3 (0.9-1.1); Prothrombin Time 39.2 Seconds (9.0-12.0)
[2021-02-11 10:13] LABS: BUN Creatinine Ratio 64.5 (10-20); Calcium 9.3 mg/dl (8.5-10.1); Creatinine Clr Calc Pharmacy 36.4 ml/min; Est GFR (African American) 42.3 ml/min; Est GFR (Non-African American) 36.5 ml/min; Potassium 2.8 mmol/L (3.5-5.1)
--- NOTE | 2021-02-11 16:26 | Communication Note ---
Date of Service: February 11, 2021 I saw Lashay again today in the movements do come out when 1 engages her conversation but they are certainly not impairing her function in any way shape or form and she is able to ambulate in the room with a walker She continues to have [place] no symptoms of COVID-19 and at this point looks better but she still has nocturnal hallucinations after she has been asleep for 4 hours and awakens in a confused state. She denies having these at home so I suspect these might be steroid induced and ongoing suggest we simply stop the steroids. Is not clear that they have helped at all. 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 we have nothing on MRI to suggest any lesions of the nervous system inflammatory type for any vascular lesions and again I think she is improved largely because of the Zyprexa She did apparently see psychiatry on an outpatient basis and they are the ones that recommended neuro evaluation and admission to control the movements and now that these are controlled I wonder if perhaps we could get our psychiatry staff to take a look at That having been said I do not think any meaningful psychiatric evaluation could be done as long as the examiner has to be totally protected from Covid as it does inhibit conversation quite a bit so I would suggest repeating the Covid test and if negative then perhaps get our psychiatry group involved and see if they have any thoughts about her hallucinations and some of her unusual behavior so which I think is probably baseline Hopefully we can get plan started to discharge her to home within the next several days we can see her in follow-up in neurology and she is going to need outpatient psychiatry assessment as well to address medications for anxiety and perhaps will recommend increasing the Zyprexa but this to control some of her hallucinations in addition to her movements Long-term management will find my opinion involve getting our movement disorders group involved and doing a Tom's disease genetic analysis but again these are outpatient labs. I am really reluctant to do a paraneoplastic lab assessment at this point until we can have her discharge been doing through the [employer] system and frankly not sure the yield is going to be significant if she is improved with very low doses of Zyprexa and does not have a lot of the other manifestations 1 with associated with paraneoplastic syndrome nor did she have any evidence for a neoplastic process on appropriate imaging of the chest abdomen and pelvis I discussed these recommendations Dr. Abi Miramontes MD
[2021-02-11] MEDS: POTASSIUM CHLORIDE CRTAB 20 MEQ TABCR PO SCH ×2 (16:56→18:27)
[2021-02-11] MEDS: OLANZAPINE 2.5 MG TAB PO SCH (20:07)
[2021-02-11] MEDS: LORazepam 1 MG TAB PO SCH (20:07)
[2021-02-11] MEDS: ROSUVASTATIN CALCIUM 5 MG TAB PO SCH (20:08)
[2021-02-11] MEDS: lisinopril 2.5 MG TAB PO SCH (20:08)
--- NOTE | 2021-02-11 22:51 | Hospitalist Progress Note ---
Date of Service February 11, 2021 Assessment & Plan (1) Chorea: (2) Motor restlessness: Plan: Presenting on admission with worsening anxiety, restlessness, and uncontrolled motor movements Etiology unknown Possible due to underlying autoimmunity or Covid related autoimmune mediated CT had showed no acute intracranial abnormality MRI brain showed no acute intracranial abnormality. No acute or subacute infarct. CT chest/abd/pelvis showed a 1.8 cm peripheral hypodensity within the posterior segment of the right hepatic lobe. This is technically indeterminate but favors a benign lesion such as a hemangioma. Neurology on board ESR is normal COLLIN rheumatoid factor and ANCA titers are still pending High-dose Solu-Medrol 1000 mg given for 2 days then Transition to p.o. prednisone 100 mg, then 80 mg today Will taper prednisone to 60mg tomorrow, then 40 mg the following day, 20 mg a day after 10 mg a day after that and stop it. Due to hallucination at night we will discontinue the steroid Continue Ativan 1mg HS and 25 mg in the morning continue Zyprexa 7.5 mg at bedtime Clinically improves significantly (3) E. coli UTI: Plan: Urine culture positive for E. coli on 01/27 Repeat urine culture on admission positive for gram-negative bacilli- E. Coli Continue IV ceftriaxone Will transition to p.o. on discharge (4) Hyponatremia: Plan: Sodium 127 on admission Received IV fluids, sodium improved to 134 Discontinued IV fluid with NS Lasix discontinued due to elevated creatinine Discontinue salt tablet Continue monitor BMP (5) Lab test positive for detection of COVID-19 virus: Plan: Asymptomatic Treatment not indicated at this time Continue contact isolation We will repeat Covid 19 therapy (6) Atrial fibrillation: Plan: Rate controlled on diltiazem Coumadin on hold due to supratherapeutic INR 4.3 Continue monitor PT/INR (7) HTN (hypertension): Plan: BP controlled continue diltiazem and lisinopril (8) Epilepsy: Plan: Depakote level 92 Continue Depakote Seizure precaution (9) CKD (chronic kidney disease), stage III: Plan: Baseline creatinine runs in the low-mid 1's Creatinine 1.2 today Continue monitor BMP Supratherapeutic INR INR on admission 4 then increased to 4.4, Coumadin was held INR today 4.3, Coumadin on hold (10) DVT prophylaxis: Plan: Hold Coumadin, INR 4.3 today Admission and Anticipated Discharge Date Admission Date: February 06, 2021 Subjective Patient was seen and examined for follow-up of abnormal movement and speech dysarthria Lying in bed with no acute distress Her speech continues to improve as well as the abnormal movements She said that she is feeling a lot better Denies any hallucination, palpitation, dizziness, shortness of breath Physical Exam Physical Exam: General- No acute distress Head- atraumatic Eyes- PERRL, EOMI, ENT- oropharynx clear Neck- supple, no JVD Lungs- clear to auscultation Heart- regular rhythm; +systolic murmur Abdomen- normal bowel sounds, soft, nontender Extremities- no calf tenderness Neuro- alert, oriented x 3; + dysarthric speech, +choreiform movements improved Skin- warm & dry Results & Data Results & Data ([facility]) Vital Signs (Past 12 Hours) Vital Signs Temp Pulse Resp BP Pulse Ox 02/11/21 20:03 36.5 C 89 16 131/75 95 02/11/21 12:09 36.4 C L 92 H 19 131/73 99
[2021-02-12 07:42] LABS: INR 3.5 (0.9-1.1); Prothrombin Time 32.5 Seconds (9.0-12.0)
[2021-02-12 08:08] LABS: BUN Creatinine Ratio 56.2 (10-20); Est GFR (African American) 56.8 ml/min
[2021-02-12] MEDS ORDERED: predniSONE 20 MG TAB PO ONE (09:00)
--- NOTE | 2021-02-12 09:00 | Nephrology Progress Note ---
Date of Service February 12, 2021 Assessment & Plan Admission and Anticipated Discharge Date Admission Date: February 06, 2021 Subjective Subjective--No new issues. labs pending today PHYSICAL EXAMINATION: GENERAL: A middle-aged white female who does not appear to be in any respiratory distress. HEENT: Mucous membranes moist. NECK: Supple. No jugular venous distention. CHEST: Bilaterally clear to auscultation. CARDIOVASCULAR: S1 and S2 regular. Soft systolic murmur heard. ABDOMEN: Soft, nontender. EXTREMITIES: Show no edema. NEUROLOGIC: Awake, alert, oriented x3, normal affect. LABORATORY TEST: Showed sodium was 127 on admission , last one 135 Creatinine has also come down Urine osmolality was 248. UA showed some ketones, specific gravity of 1.009. A/p 1 Hyponatremia--Some combination of volume Depletion and Some degree of SIADH and we treated her for both and Na did rise have stopped everything for now. Na still good and rising. Low k yesterday and normal this am FFR--1500 ml per day is all we need labs Can be daily now. Results & Data ([facility]) Vital Signs (Past 12 Hours) Vital Signs Temp Pulse Pulse Resp BP BP Pulse Ox 02/12/21 08:00 36.4 C L 69 16 139/74 98 02/12/21 03:03 36.4 C L 78 16 148/84 H 98 02/12/21 00:00 78 02/11/21 23:34 36.4 C L 79 16 144/79 H 98
[2021-02-12] MEDS: dilTIAZem HCL 180 MG CAPCR PO SCH (09:02)
[2021-02-12] MEDS: DIVALPROEX EXTENDED RELEASE 500 MG TAB PO SCH (09:02)
[2021-02-12] MEDS: LORazepam 0.5 MG TAB PO SCH (09:05)
[2021-02-12 13:32] LABS: ANCA Screen Negative (Negative); Anti Nuclear Antibody Screen POSITIVE (NEGATIVE); Rheumatoid Factor <14 IU/mL (<14)
--- NOTE | 2021-02-12 16:32 | Hospitalist Progress Note ---
Date of Service February 12, 2021 Assessment & Plan (1) Chorea: (2) Motor restlessness: Plan: Symptoms has markedly improved Presenting on admission with worsening anxiety, restlessness, and uncontrolled motor movements Etiology unknown CT had showed no acute intracranial abnormality MRI brain showed no acute intracranial abnormality. No acute or subacute infarct. CT chest/abd/pelvis showed a 1.8 cm peripheral hypodensity within the posterior segment of the right hepatic lobe. This is technically indeterminate but favors a benign lesion such as a hemangioma. Neurology on board appreciate input ESR is normal COLLIN positive/rheumatoid factor and ANCA titers negative Patient was given high dose of steroid for possible autoimmune process, Discontinued if patient develop worsening of confusion hallucination Neurology suggest continuing Ativan 1 mg at bedtime, 0.5 in a.m. continue Zyprexa 7.5 mg at bedtime Clinically improves significantly (3) E. coli UTI: Plan: Urine culture positive for E. coli on 01/27 Repeat urine culture on admission positive for gram-negative bacilli- E. Coli On p.o. cefdinir needs 5 days of treatment (4) Hyponatremia: Plan: Improved, sodium 135: New fluid restriction appreciate input from cardiology (5) Lab test positive for detection of COVID-19 virus: Plan: Asymptomatic Treatment not indicated at this time Continue contact isolation (6) Atrial fibrillation: Plan: Rate controlled on diltiazem On Coumadin (7) HTN (hypertension): Plan: BP controlled continue diltiazem and lisinopril (8) Epilepsy: Plan: Depakote level 92 Continue Depakote Seizure precaution (9) CKD (chronic kidney disease), stage III: Plan: Baseline creatinine runs in the low-mid 1's Creatinine 1.2 today Continue monitor BMP (10) DVT prophylaxis: Plan: Coumadin Update given to patient's daughter Kate over phone Disposition expected to be discharged home when medically stable Admission and Anticipated Discharge Date Admission Date: February 06, 2021 Subjective Patient is more alert and awake today remains somewhat confused about the day and place Fever chills, no hypoxia Review of Systems Review of Systems: Unobtainable due to cognitive status Physical Exam Constitutional: well developed; no acute distress Eyes: sclerae not anicteric Neck: trachea midline, no thyromegaly Respiratory: normal respiratory effort, lungs clear to auscultation Cardiovascular: RRR, no murmur, no edema Gastrointestinal (Abdomen): Inspection/Auscultation: abdomen normal to inspection Percussion/Palpation: abdomen soft; abdomen nontender Musculoskeletal: no cyanosis or clubbing, extremities motor strength 5/5 Skin: no rashes, warm and dry Neurologic: awake and + confused; no focal motor deficits Psychiatric: Orientation: alert and oriented to person Affect: euthymic affect Results & Data Results & Data ([facility]) Vital Signs (Past 12 Hours) Vital Signs Temp Pulse Pulse Resp BP BP Pulse Ox 02/12/21 16:00 84 02/12/21 15:57 36.3 C L 79 22 96/60 L 97 02/12/21 08:00 36.4 C L 70 69 16 139/74 98
--- NOTE | 2021-02-12 16:34 | Communication Note ---
Date of Service: February 12, 2021 Lashay looks much improved today she is sitting up in her chair she has virtually no choreiform movements only minimal facial grimacing, is ambulatory with some assistance, and has clear speech more clear her speech and she had, and reported no hallucinations last night and slept much better off the steroids I would continue Zyprexa 7.5 mg, Ativan 1 mg at bedtime and point 5 in the morning to be tapered down by psychiatry as they see fit, she would need to be seen in follow-up by psychiatry, neurology needs to see her on an outpatient basis in several weeks time, I will arrange for [place]'s disease genetic testing to be done at that point and may end up referring her to our movement disorders group depending on how she is doing on the outpatient basis Neurology is going to sign off her case at this point and hope that she can be discharged either today or tomorrow depending upon the social situation I had hoped that a repeat Covid test would have been done to clarify her status as clinically she is so asymptomatic that one would have to wonder about whether the test was not a false positive Ascencion Miramontes MD I
[2021-02-12] MEDS: OLANZAPINE 2.5 MG TAB PO SCH (21:26)
[2021-02-12] MEDS: LORazepam 1 MG TAB PO SCH (21:26)
[2021-02-12] MEDS: lisinopril 2.5 MG TAB PO SCH (21:27)
[2021-02-12] MEDS: ROSUVASTATIN CALCIUM 5 MG TAB PO SCH (21:27)
[2021-02-13 07:11] LABS: INR 2.1 (0.9-1.1); Prothrombin Time 20.2 Seconds (9.0-12.0)
[2021-02-13] MEDS: LORazepam 0.5 MG TAB PO SCH (08:18)
[2021-02-13] MEDS: dilTIAZem HCL 180 MG CAPCR PO SCH (08:20)
[2021-02-13] MEDS: DIVALPROEX EXTENDED RELEASE 500 MG TAB PO SCH (08:20)
[2021-02-13] MEDS ORDERED: predniSONE 20 MG TAB PO ONE (09:00)
[2021-02-13 13:42] LABS: ANA Pattern Nuclear, Nucleolar; ANA Pattern 3 Nuclear, Speckled; ANA Titer > OR = 1:1280 titer; ANA Titer 2 > OR = 1:1280 titer
--- NOTE | 2021-02-13 17:00 | Hospitalist Progress Note ---
Date of Service February 13, 2021 Assessment & Plan (1) Chorea: (2) Motor restlessness: Plan: Symptom has resolved, no tremor Normal gait no balance disturbance, Mental status gradually improving Presenting on admission with worsening anxiety, restlessness, and uncontrolled motor movements Etiology unknown CT had showed no acute intracranial abnormality MRI brain showed no acute intracranial abnormality. No acute or subacute infarct. CT chest/abd/pelvis showed a 1.8 cm peripheral hypodensity within the posterior segment of the right hepatic lobe. This is technically indeterminate but favors a benign lesion such as a hemangioma. Neurology on board appreciate input ESR is normal COLLIN positive/rheumatoid factor and ANCA titers negative Patient was given high dose of steroid for possible autoimmune process, Discontinued if patient develop worsening of confusion hallucination Neurology suggest continuing Ativan 1 mg at bedtime, 0.5 in a.m. continue Zyprexa 7.5 mg at bedtime Clinically improves significantly Outpatient follow-up with neurology (3) E. coli UTI: Plan: Urine culture positive for E. coli on 01/27 Repeat urine culture on admission positive for gram-negative bacilli- E. Coli On p.o. cefdinir needs 5 days of treatment (4) Hyponatremia: Plan: Improved, sodium 135: New fluid restriction appreciate input from cardiology (5) Lab test positive for detection of COVID-19 virus: Plan: test positive on 02/06/2021 asymptomatic Treatment not indicated at this time Continue contact isolation Repeat Covid test done today positive as well continue contact isolation (6) Atrial fibrillation: Plan: Rate controlled on diltiazem On Coumadin (7) HTN (hypertension): Plan: BP controlled continue diltiazem and lisinopril (8) Epilepsy: Plan: Depakote level 92 Continue Depakote Seizure precaution (9) CKD (chronic kidney disease), stage III: Plan: Baseline creatinine runs in the low-mid 1's Creatinine 1.2 today Continue monitor BMP (10) DVT prophylaxis: Plan: Coumadin Update given to patient's daughter Kate over phone Disposition expected to be discharged home when medically stable Admission and Anticipated Discharge Date Admission Date: February 06, 2021 Subjective Very pleasant, walking independently at room, no gait disturbance, No cough no fever or chills, remains asymptomatic Movement disorder. Review of Systems Review of Systems: Unobtainable due to cognitive status Physical Exam Constitutional: well developed; no acute distress Eyes: sclerae not anicteric Neck: trachea midline, no thyromegaly Respiratory: normal respiratory effort, lungs clear to auscultation Cardiovascular: RRR, no murmur, no edema Gastrointestinal (Abdomen): Inspection/Auscultation: abdomen normal to inspection Percussion/Palpation: abdomen soft; abdomen nontender Musculoskeletal: no cyanosis or clubbing, extremities motor strength 5/5 Skin: no rashes, warm and dry Neurologic: awake and + confused; no focal motor deficits Psychiatric: Orientation: alert and oriented to person Affect: euthymic affect Results & Data Results & Data ([facility]) Vital Signs (Past 12 Hours) Vital Signs Temp Pulse Pulse Resp BP BP Pulse Ox 02/13/21 11:49 36.2 C L 78 16 106/66 97 02/13/21 08:00 71 02/13/21 06:47 36.4 C L 67 17 116/72 97
[2021-02-13] MEDS: WARFARIN SOD 4 MG TAB PO SCH (17:12)
[2021-02-13] MEDS: ROSUVASTATIN CALCIUM 5 MG TAB PO SCH (21:01)
[2021-02-13] MEDS: OLANZAPINE 2.5 MG TAB PO SCH (21:01)
[2021-02-13] MEDS: LORazepam 1 MG TAB PO SCH (21:02)
[2021-02-13] MEDS: lisinopril 2.5 MG TAB PO SCH (21:02)
[2021-02-14 07:41] LABS: INR 1.7 (0.9-1.1); Prothrombin Time 16.5 Seconds (9.0-12.0)
[2021-02-14] MEDS ORDERED: predniSONE 10 MG TABLET PO ONE (09:00)
[2021-02-14 09:26] LABS: BUN Creatinine Ratio 40.6 (10-20); Calcium 8.7 mg/dl (8.5-10.1); Creatinine Clr Calc Pharmacy 42.9 ml/min; Est GFR (African American) 56.8 ml/min; Potassium 4.6 mmol/L (3.5-5.1)
[2021-02-14] MEDS: dilTIAZem HCL 180 MG CAPCR PO SCH (09:29)
[2021-02-14] MEDS: LORazepam 0.5 MG TAB PO SCH (09:30)
[2021-02-14] MEDS: DIVALPROEX EXTENDED RELEASE 500 MG TAB PO SCH (09:30)
[2021-02-14] MEDS: ENOXAPARIN 80 MG/0.8 ML SYR SC SCH ×2 (09:30→21:53)
--- NOTE | 2021-02-14 11:31 | Nephrology Progress Note ---
Date of Service February 14, 2021 Assessment & Plan Admission and Anticipated Discharge Date Admission Date: February 06, 2021 Subjective Subjective Subjective--No new issues. Na dropped a bit after cutting back on meds. PHYSICAL EXAMINATION: GENERAL: A middle-aged white female who does not appear to be in any respiratory distress. HEENT: Mucous membranes moist. NECK: Supple. No jugular venous distention. CHEST: Bilaterally clear to auscultation. CARDIOVASCULAR: S1 and S2 regular. Soft systolic murmur heard. ABDOMEN: Soft, nontender. EXTREMITIES: Show no edema. NEUROLOGIC: Awake, alert, oriented x3, normal affect. LABORATORY TEST: Showed sodium was 127 on admission , last one 135 and now 132 Creatinine has also come down Urine osmolality was 248. UA showed some ketones, specific gravity of 1.009. A/p 1 Hyponatremia--Some combination of volume Depletion and Some degree of SIADH and we treated her for both and Na did rise have stopped everything for now. Na dropped a bit today. FFR--1200 ml per day. if Na drops again may need to put her back on Salt tab/lasix labs Can be daily now. Results & Data ([facility]) Vital Signs (Past 12 Hours) Vital Signs Temp Pulse Pulse Resp BP Pulse Ox 02/14/21 06:33 36.4 C L 65 17 109/69 99 02/14/21 03:55 36.4 C L 70 18 144/79 H 100 02/14/21 00:00 67
[2021-02-14] MEDS: WARFARIN SOD 4 MG TAB PO SCH (16:09)
--- NOTE | 2021-02-14 16:40 | Hospitalist Progress Note ---
Date of Service February 14, 2021 Assessment & Plan (1) Chorea: (2) Motor restlessness: Plan: Symptom has resolved, no tremor Normal gait no balance disturbance, Mental status gradually improving Presenting on admission with worsening anxiety, restlessness, and uncontrolled motor movements Etiology unknown CT had showed no acute intracranial abnormality MRI brain showed no acute intracranial abnormality. No acute or subacute infarct. CT chest/abd/pelvis showed a 1.8 cm peripheral hypodensity within the posterior segment of the right hepatic lobe. This is technically indeterminate but favors a benign lesion such as a hemangioma. Neurology on board appreciate input ESR is normal COLLIN positive/rheumatoid factor and ANCA titers negative Patient was given high dose of steroid for possible autoimmune process, Discontinued if patient develop worsening of confusion hallucination Neurology suggest continuing Ativan 1 mg at bedtime, 0.5 in a.m. continue Zyprexa 7.5 mg at bedtime Clinically improved significantly, outpatient follow-up with neurology (3) E. coli UTI: Plan: Urine culture positive for E. coli on 01/27 Repeat urine culture on admission positive for gram-negative bacilli- E. Coli On p.o. cefdinir needs 5 days of treatment (4) Hyponatremia: Plan: Possible secondary to combination of dehydration and SIADH Nephrology following, continue fluid restriction 1200 mL a day Follow BMP (5) Lab test positive for detection of COVID-19 virus: Plan: test positive on 02/06/2021 asymptomatic Treatment not indicated at this time Continue contact isolation Repeat Covid test 02/13/2021 positive as well continue contact isolation (6) Atrial fibrillation: Plan: Rate controlled on diltiazem On Coumadin (7) HTN (hypertension): Plan: BP controlled continue diltiazem and lisinopril (8) Epilepsy: Plan: Depakote level 92 Continue Depakote Seizure precaution (9) CKD (chronic kidney disease), stage III: Plan: Baseline creatinine runs in the low-mid 1's Creatinine remained stable at baseline (10) DVT prophylaxis: Plan: Coumadin Update given to patient's over the phone Disposition expected to be discharged home in next 1-2 days Admission and Anticipated Discharge Date Admission Date: February 06, 2021 Subjective More awake and alert today, pleasant, Oriented to surroundings, still have some episode of forgetfulness No fever or chills, no cough shortness of breath or hypoxia Physical Exam Constitutional: well developed; no acute distress Eyes: sclerae not anicteric Neck: trachea midline, no thyromegaly Respiratory: normal respiratory effort, lungs clear to auscultation Cardiovascular: RRR, no murmur, no edema Gastrointestinal (Abdomen): Inspection/Auscultation: abdomen normal to inspection Percussion/Palpation: abdomen soft; abdomen nontender Musculoskeletal: no cyanosis or clubbing, extremities motor strength 5/5 Skin: no rashes, warm and dry Neurologic: awake and + confused; no focal motor deficits Psychiatric: Orientation: alert and oriented to person Affect: euthymic affect Results & Data Results & Data ([facility]) Vital Signs (Past 12 Hours) Vital Signs Temp Pulse Resp BP Pulse Ox 02/14/21 15:59 36.2 C L 77 20 91/58 L 97 02/14/21 11:53 36.3 C L 80 18 99/62 L 91 02/14/21 06:33 36.4 C L 65 17 109/69 99
[2021-02-14] MEDS: LORazepam 1 MG TAB PO SCH (21:52)
[2021-02-14] MEDS: OLANZAPINE 2.5 MG TAB PO SCH (21:57)
[2021-02-14] MEDS: ROSUVASTATIN CALCIUM 5 MG TAB PO SCH (21:57)
[2021-02-14] MEDS: lisinopril 2.5 MG TAB PO SCH (21:57)
[2021-02-15 06:11] LABS: Hemoglobin 11.9 g/dL (12.0-16.0); Mean Corpuscular Hemoglobin 31.9 pg (25-34); Mean Corpuscular Volume 93.8 fL (80-100); Mean Platelet Volume 10.8 fL (7.4-10.4); Platelet Count 144 K/uL (130-400); RDW Coefficient of Variation 13.1 % (11.5-14.5); RDW Standard Deviation 45.2 fL (36.4-46.3); Red Blood Count 3.73 M/uL (4.2-5.4); White Blood Count 3.69 K/uL (4.8-10.8)
[2021-02-15 06:25] LABS: Prothrombin Time 18.8 Seconds (9.0-12.0)
[2021-02-15 06:29] LABS: Creatinine Clr Calc Pharmacy 37.2 ml/min; Est GFR (African American) 47.7 ml/min; Est GFR (Non-African American) 41.2 ml/min
[2021-02-15] MEDS: ENOXAPARIN 80 MG/0.8 ML SYR SC SCH (07:31)
[2021-02-15] MEDS: dilTIAZem HCL 180 MG CAPCR PO SCH (07:31)
[2021-02-15] MEDS: DIVALPROEX EXTENDED RELEASE 500 MG TAB PO SCH (07:32)
[2021-02-15] MEDS: LORazepam 0.5 MG TAB PO SCH (07:37)
[2021-02-15 13:02] LABS: BUN Creatinine Ratio 33.3 (10-20); Creatinine Clr Calc Pharmacy 36.1 ml/min; Est GFR (African American) 46.1 ml/min; Est GFR (Non-African American) 39.7 ml/min; Potassium 4.8 mmol/L (3.5-5.1)
[2021-02-15] MEDS ORDERED: LACTATED RINGER'S 1,000 ML IV SCH (13:30)
--- NOTE | 2021-02-15 13:32 | Nephrology Progress Note ---
Date of Service February 15, 2021 Assessment & Plan (1) Hyponatremia: Plan: Patient with hyponatremia thought to be due to SIADH initially but may now have a component of hypovolemia. We will give Ringer's lactate 1 L over 12 hours. Monitor sodium daily. (2) HTN (hypertension): Plan: Blood pressure is on the lower side. We will stop lisinopril. Continue diltiazem for A. fib. (3) CKD (chronic kidney disease), stage III: Plan: Patient with CKD stage III baseline creatinine of around 1.1. Creatinine now up to 1.4. Will give IV fluids today and continue to monitor renal function with daily BMP. Avoid nephrotoxins Admission and Anticipated Discharge Date Admission Date: February 06, 2021 Subjective Seen in follow-up for hyponatremia. She feels better today. No cough no shortness of breath. She is eating and drinking well. No diarrhea and no vomiting Review of Systems Review of Systems: All other systems were reviewed and negative except as noted in HPI Physical Exam Physical Exam: General exam: Appears comfortable, no acute distress HEENT: Pupils are equal and reactive to light Neck: No JVD, neck is supple trachea is midline Respiratory system: Clear breath sounds bilaterally. Gastrointestinal: Abdomen is soft, non distended, non tender, bowel sounds are present CVS: Regular rate and rhythm. No murmurs, rubs or gallops Musculoskeletal: No joint or muscle tenderness Extremities: Non tender, no edema, peripheral pulses are present Neuro: Oriented, no tremors, no focal neurological deficits Skin: No rashes Results & Data ([facility]) Vital Signs (Past 12 Hours) Vital Signs Temp Pulse Resp BP Pulse Ox 02/15/21 07:40 36.8 C 77 18 99/64 L 94 Laboratory Results 02/15/21 05:54 02/15/21 05:40 WBC 3.69 L RBC 3.73 L MCV 93.8 MCH 31.9 MCHC 34.0 RDW Std Deviation 45.2 RDW Coeff of Cely 13.1 Plt Count 144 MPV 10.8 H
[2021-02-15] MEDS: WARFARIN SOD 4 MG TAB PO SCH (15:47)
--- NOTE | 2021-02-15 16:57 | Hospitalist Progress Note ---
Date of Service February 15, 2021 Assessment & Plan (1) Chorea: (2) Motor restlessness: Plan: Symptom has resolved, no tremor Normal gait no balance disturbance, Ental status improved to approximate baseline, very pleasant oriented to surroundings, remains forgetful Admitted with anxiety, restlessness, and uncontrolled motor movements Etiology unknown No stroke no acute neurological event: CT had showed no acute intracranial abnormality MRI brain showed no acute intracranial abnormality. No acute or subacute infarct. CT chest/abd/pelvis showed a 1.8 cm peripheral hypodensity within the posterior segment of the right hepatic lobe. This is technically indeterminate but favors a benign lesion such as a hemangioma. Neurology on board appreciate input ESR is normal COLLIN positive/rheumatoid factor and ANCA titers negative Patient was given high dose of steroid for possible autoimmune process, Discontinued if patient develop worsening of confusion hallucination Neurology suggest continuing Ativan 1 mg at bedtime, 0.5 in a.m. We will reduce the dose of Ativan to 0.5 twice daily as getting Zyprexa scheduled at bedtime, on discharge can be changed to as needed continue Zyprexa 7.5 mg at bedtime Clinically improved significantly, outpatient follow-up with neurology (3) E. coli UTI: Plan: Urine culture positive for E. coli on 01/27 Repeat urine culture on admission positive for gram-negative bacilli- E. Coli On p.o. cefdinir needs 5 days of treatment (4) Hyponatremia: Plan: Possible secondary to combination of dehydration and SIADH Nephrology following, continue fluid restriction 1200 mL a day Sodium remains persistently low at 132 today, IV LR ordered by nephrology, Patient developed acute renal failure on CKD stage III, possible secondary to hypotension? SBP in low 90s OKSANA inhibitor order to Be kept on hold by nephrology Continue to follow BMP avoid NSAIDs and contrast studies (5) Lab test positive for detection of COVID-19 virus: Plan: test positive on 02/06/2021 asymptomatic Treatment not indicated at this time Continue contact isolation Repeat Covid test 02/13/2021 positive as well continue contact isolation (6) Atrial fibrillation: Plan: Rate controlled on diltiazem On Coumadin INR therapeutic, DC Lovenox bridge (7) HTN (hypertension): Plan: BP controlled continue diltiazem Lisinopril on hold for acute renal failure (8) Epilepsy: Plan: Depakote level 92 Continue Depakote Seizure precaution (9) CKD (chronic kidney disease), stage III: Plan: Acute renal failure, possible tach secondary to hypotension, hold OKSANA inhibitor repeat lab (10) DVT prophylaxis: Plan: Coumadin Update given to patient's daughter Kate over phone Will need continued hospital stay for hyponatremia/acute renal failure Admission and Anticipated Discharge Date Admission Date: February 06, 2021 Subjective Seen in follow-up for hyponatremia. She feels better today. No cough no shortness of breath. She is eating and drinking well. No diarrhea and no vomiting Physical Exam Constitutional: well developed; no acute distress Eyes: sclerae not anicteric Neck: trachea midline, no thyromegaly Respiratory: normal respiratory effort, lungs clear to auscultation Cardiovascular: RRR, no murmur, no edema Gastrointestinal (Abdomen): Inspection/Auscultation: abdomen normal to inspection Percussion/Palpation: abdomen soft; abdomen nontender Musculoskeletal: no cyanosis or clubbing, extremities motor strength 5/5 Skin: no rashes, warm and dry Neurologic: awake and + confused; no focal motor deficits Psychiatric: Orientation: alert and oriented to person Affect: euthymic affect Results & Data Results & Data ([facility]) Vital Signs (Past 12 Hours) Vital Signs Temp Pulse Resp BP Pulse Ox 02/15/21 07:40 36.8 C 77 18 99/64 L 94
[2021-02-15] MEDS: LORazepam 1 MG TAB PO SCH (21:05)
[2021-02-15] MEDS: OLANZAPINE 2.5 MG TAB PO SCH (21:05)
[2021-02-15] MEDS: ROSUVASTATIN CALCIUM 5 MG TAB PO SCH (21:06)
[2021-02-16 06:04] LABS: INR 2.2 (0.9-1.1); Prothrombin Time 20.7 Seconds (9.0-12.0)
[2021-02-16] MEDS: LORazepam 0.5 MG TAB PO SCH (09:17)
[2021-02-16] MEDS: DIVALPROEX EXTENDED RELEASE 500 MG TAB PO SCH (09:17)
[2021-02-16] MEDS: dilTIAZem HCL 180 MG CAPCR PO SCH (09:17)
[2021-02-16 10:27] LABS: Calcium 8.5 mg/dl (8.5-10.1); Creatinine Clr Calc Pharmacy 42.6 ml/min; Est GFR (African American) 56.2 ml/min; Est GFR (Non-African American) 48.5 ml/min; Potassium 4.4 mmol/L (3.5-5.1)
--- NOTE | 2021-02-16 11:56 | Nephrology Progress Note ---
Date of Service February 16, 2021 Assessment & Plan (1) Hyponatremia: Plan: Patient with hyponatremia thought to be due to SIADH. Sodium dropped to 128 after giving IV fluids. This is consistent with SIADH. Will resume urea 15 g twice daily while in-house. From renal standpoint patient can be discharged to continue fluid restriction of 1.2 L at home. Patient can go home on urea 15 g daily. I discussed that this might not be paid for by the insurance. Patient is agreeable to obtain urea on her own for at least 2-week supply. She will need a repeat BMP towards the end of the coming week and renal follow-up in 1 to 2 weeks. (2) HTN (hypertension): Plan: Blood pressure is on better off lisinopril. Continue diltiazem for A. fib. (3) CKD (chronic kidney disease), stage III: Plan: Patient with CKD stage III baseline creatinine of around 1.1. Creatinine Back to baseline after IV fluids. continue to monitor renal function with daily BMP while in-house and BMP towards the end of the coming week if discharged. Avoid nephrotoxins Admission and Anticipated Discharge Date Admission Date: February 06, 2021 Subjective Seen in follow-up for hyponatremia. She feels better today. No shortness of breath. No leg swelling. Sodium dropped to 128 this morning after a liter of IV fluids yesterday Review of Systems Review of Systems: All other systems were reviewed and negative except as noted in HPI Physical Exam Physical Exam: General exam: Appears comfortable, no acute distress HEENT: Pupils are equal and reactive to light Neck: No JVD, neck is supple trachea is midline Respiratory system: Clear breath sounds bilaterally. Gastrointestinal: Abdomen is soft, non distended, non tender, bowel sounds are present CVS: Regular rate and rhythm. No murmurs, rubs or gallops Musculoskeletal: No joint or muscle tenderness Extremities: Non tender, no edema, peripheral pulses are present Neuro: Oriented, no tremors, no focal neurological deficits Skin: No rashes Results & Data ([facility]) Vital Signs (Past 12 Hours) Vital Signs Temp Pulse Resp BP Pulse Ox 02/16/21 09:02 36.7 C 79 20 129/77 97 Laboratory Results 02/16/21 09:55
[2021-02-16] MEDS: UREA (UREA-NA) 15 GM PACK PO SCH ×2 (12:35→21:00)
--- NOTE | 2021-02-16 15:32 | Hospitalist Progress Note ---
Date of Service February 16, 2021 Assessment & Plan (1) Chorea: (2) Motor restlessness: Plan: Symptom has resolved, no tremor Normal gait no balance disturbance, mental l status improved to approximate baseline, very pleasant oriented to surroundings, remains forgetful Admitted with anxiety, restlessness, and uncontrolled motor movements Etiology unknown - No stroke no acute neurological event: CT had showed no acute intracranial abnormality MRI brain showed no acute intracranial abnormality. No acute or subacute infarct. CT chest/abd/pelvis showed a 1.8 cm peripheral hypodensity within the posterior segment of the right hepatic lobe. This is technically indeterminate but favors a benign lesion such as a hemangioma. Neurology on board appreciate input ESR is normal COLLIN positive/rheumatoid factor and ANCA titers negative Neurology suggest continuing Ativan 1 mg at bedtime, 0.5 in a.m. dose of Ativan to 0.5mg twice daily as getting Zyprexa scheduled at bedtime, on discharge ativan will be changed to as needed continue Zyprexa 7.5 mg at bedtime Clinically improved significantly, outpatient follow-up with neurology (3) E. coli UTI: Plan: Urine culture positive for E. coli on 01/27 Repeat urine culture on admission positive for gram-negative bacilli- E. Coli On p.o. cefdinir complete 5 days tx (4) Hyponatremia: Plan: Possible secondary to combination of dehydration and SIADH Nephrology following, continue fluid restriction 1200 mL a day Na 128 per nephrology , cont fluid restriction 1200ml/day out pt follow up with Nephrology BMP in week Acute renal failure : resolved OKSANA inhibitor order to Be kept on hold by nephrology Continue to follow BMP avoid NSAIDs and contrast studies (5) Lab test positive for detection of COVID-19 virus: Plan: test positive on 02/06/2021 asymptomatic Treatment not indicated at this time Continue contact isolation Repeat Covid test 02/13/2021 positive as well continue contact isolation will order COVID test today , as pt is 10 days form ist positive test has been asymptomatic since admission (6) Atrial fibrillation: Plan: Rate controlled on diltiazem On Coumadin INR therapeutic, (7) HTN (hypertension): Plan: BP controlled continue diltiazem Lisinopril on hold for acute renal failure (8) Epilepsy: Plan: Depakote level 92 Continue Depakote no seizure activity (9) CKD (chronic kidney disease), stage III: Plan: cr improved to baseline (10) DVT prophylaxis: Plan: Coumadin disposition : possible discharge to home tomorrow Admission and Anticipated Discharge Date Admission Date: February 06, 2021 Subjective Very pleasant smiling no confusion or disorientation , no fever or chills normal appetite pt reports feels like her own self wondering when can she go home no fever or chills Review of Systems Review of Systems: All systems reviewed & are unremarkable except as noted in Subjective Physical Exam Constitutional: well developed; no acute distress Eyes: sclerae not anicteric Neck: trachea midline, no thyromegaly Respiratory: normal respiratory effort, lungs clear to auscultation Cardiovascular: RRR, no murmur, no edema Gastrointestinal (Abdomen): Inspection/Auscultation: abdomen normal to inspection Percussion/Palpation: abdomen soft; abdomen nontender Musculoskeletal: no cyanosis or clubbing, extremities motor strength 5/5 Skin: no rashes, warm and dry Neurologic: awake and + confused; no focal motor deficits Psychiatric: Orientation: alert and oriented to person Affect: euthymic affect Results & Data Results & Data ([facility]) Vital Signs (Past 12 Hours) Vital Signs Temp Pulse Resp BP Pulse Ox 02/16/21 09:02 36.7 C 79 20 129/77 97
[2021-02-16] MEDS: WARFARIN SOD 4 MG TAB PO SCH (17:31)
[2021-02-16] MEDS: OLANZAPINE 2.5 MG TAB PO SCH (21:00)
[2021-02-16] MEDS: LORazepam 1 MG TAB PO SCH (21:00)
[2021-02-16] MEDS: ROSUVASTATIN CALCIUM 5 MG TAB PO SCH (21:00)
[2021-02-17 07:25] LABS: Calcium 8.8 mg/dl (8.5-10.1); Creatinine Clr Calc Pharmacy 42.2 ml/min; Est GFR (African American) 55.7 ml/min; Potassium 4.5 mmol/L (3.5-5.1)
[2021-02-17] MEDS: UREA (UREA-NA) 15 GM PACK PO SCH (08:38)
[2021-02-17] MEDS: DIVALPROEX EXTENDED RELEASE 500 MG TAB PO SCH (08:38)
[2021-02-17] MEDS: dilTIAZem HCL 180 MG CAPCR PO SCH (08:38)
[2021-02-17 08:43] VITALS: BP 108/71; PULSE 81; TEMP 97.3; O2SAT 97
[2021-02-17] MEDS: LORazepam 0.5 MG TAB PO SCH (08:48)
--- NOTE | 2021-02-17 09:27 | Nephrology Progress Note ---
Date of Service February 17, 2021 Assessment & Plan Admission and Anticipated Discharge Date Admission Date: February 06, 2021 Subjective Subjective Subjective--No new issues. Na up a bittoday to 130 PHYSICAL EXAMINATION: GENERAL: A middle-aged white female who does not appear to be in any respiratory distress. HEENT: Mucous membranes moist. NECK: Supple. No jugular venous distention. CHEST: Bilaterally clear to auscultation. CARDIOVASCULAR: S1 and S2 regular. Soft systolic murmur heard. ABDOMEN: Soft, nontender. EXTREMITIES: Show no edema. NEUROLOGIC: Awake, alert, oriented x3, normal affect. LABORATORY TEST: reviewed. this AM 130 A/p 1 Hyponatremia--Some combination of volume Depletion and Some degree of SIADH and we treated her for both and Na did rise have stopped everything for now. FFR--1200 ml per day. Continue urea for inpt but not for discharge. Insurance/Copay/taste etc. Salt tab 1 gm bid for discharge. F/u Nephrology With me within next 2 weeks with BMP. . Results & Data ([facility]) Vital Signs (Past 12 Hours) Vital Signs Temp Pulse Resp BP Pulse Ox 02/17/21 08:41 36.3 C L 81 18 108/71 97 02/16/21 23:45 36.4 C L 71 16 110/69 98
[2021-02-17] MEDS ORDERED: SODIUM CHLORIDE 1 GM TABLET PO SCH (09:30)
--- NOTE | 2021-02-17 10:25 | Communication Note ---
Date of Service: February 17, 2021 Per infectious control at [facility]: Patient has been asymptomatic since admission. First Covid test positive on 02/06/2021 Patient is more than 10 days(#11)-has remained asymptomatic Based on the CDC guidelines, this patient no longer requires transmission-based precautions (i.e., airborne precautions, contact precautions, and negative air pressure room) for COVID. Order to DC contact isolation Patient sodium level improved to 130, Plan to discharge home later today, we will update family members over phone Ernestine Baires MD
--- NOTE | 2021-02-17 16:29 | Discharge Summary ---
Date of Service February 17, 2021 Admission HPI Per Admitting Provider 65 -year-old female with PMH HTN, paroxysmal atrial fibrillation anticoagulated on Coumadin, epilepsy, antiphospholipid antibody syndrome, and other problems listed below who presents to the ED for evaluation of anxiety and restlessness. Symptoms have been going on for the past few weeks and progressively getting worse. Patient was seen in the ED on 01/[address] with [address] Head CT was unremarkable. Na+ 128. Patient was discharged on PRN Xanax and instruction to follow up with PCP. Patient had repeat labs, Na+ 127 -> 128. Depakote level 100 (high end of normal). Patient was instructed to hold Paxil until seen by psych. Was referred to psych and seen there yesterday who did not feel that problem is underlying psych but rather neurological. Patient sent to the ED today for further eval. Patient reports she is not sleeping. She feels anxious and continues to have uncontrolled movements and drops things. She denies chest pain and shortness of breath. No abdominal pain, nausea, vomiting, or diarrhea. Denies fever and chills. No lightheadedness, dizziness, diaphoresis, or syncopal events. Denies urinary symptoms. In the ED, Na+ 127. Head CT unremarkable. Vitals stable. Patient was given IVF. Principal Diagnosis Hyponatremia Confusion, disorientation/encephalopathy resolved COVID-19 infection asymptomatic last COVID -19 test negative Discharge Exam Constitutional well developed; no acute distress Eyes sclerae not anicteric Neck trachea midline, no thyromegaly Respiratory normal respiratory effort, lungs clear to auscultation Cardiovascular RRR, no murmur, no edema Gastrointestinal (Abdomen) Inspection/Auscultation: abdomen normal to inspection Percussion/Palpation: abdomen soft; abdomen nontender Musculoskeletal no cyanosis or clubbing, extremities motor strength 5/5 Skin no rashes, warm and dry Neurologic awake and + confused; no focal motor deficits Psychiatric Orientation: alert and oriented to person Affect: euthymic affect Discharge Data Allergies Allergy/AdvReac Type Severity Reaction Status Date / Time carbamazepine Allergy Intermediate Hives Unverified 02/10/21 18:38 estrogens, conjugated Allergy Intermediate Hives Unverified 02/10/21 18:38 [From Premarin] phenytoin Allergy Intermediate Hives Unverified 02/10/21 18:38 sulfamethoxazole Allergy Intermediate chills/shari Unverified 02/10/21 18:38 [From Bactrim] rs/hives trimethoprim [From Bactrim] Allergy Intermediate chills/shari Unverified 02/10/21 18:38 rs/hives amoxicillin Allergy Unknown As per Unverified 01/27/21 18:43 [facility] diphenhydramine Allergy Unknown As per Unverified 01/27/21 18:43 [From Benadryl] [facility] penicillin G Allergy Unknown As per Unverified 01/27/21 18:43 [facility] ciprofloxacin [From Cipro] AdvReac Intermediate C. Diff Unverified 02/10/21 18:38 phenobarbital AdvReac Intermediate Depression Unverified 02/10/21 18:38 Consultations 02/06/21 12:36 ED Decision to Admit Stat 02/06/21 15:51 Consult Neurology Routine 02/06/21 17:17 Consult Nephrology Routine Ordered Studies 02/06/21 11:11 CT head/brain wo con Stat 02/06/21 14:21 MR brain wo/w con Stat 02/08/21 21:58 CT abd pelvis oral and IV con Routine 02/08/21 22:01 CT chest diagnostic w con Routine Hospital Course (1) Chorea: (2) Motor restlessness: Symptom has resolved, no tremor Normal gait no balance disturbance, mental l status improved to approximate baseline, very pleasant oriented to surroundings, remains forgetful Admitted with anxiety, restlessness, and uncontrolled motor movements Etiology unknown - No stroke no acute neurological event: CT had showed no acute intracranial abnormality MRI brain showed no acute intracranial abnormality. No acute or subacute infarct. CT chest/abd/pelvis showed a 1.8 cm peripheral hypodensity within the posterior segment of the right hepatic lobe. This is technically indeterminate but favors a benign lesion such as a hemangioma. Neurology on board appreciate input ESR is normal COLLIN positive/rheumatoid factor and ANCA titers negative dose of Ativan to 0.5mg twice daily prn continue Zyprexa 7.5 mg at bedtime no confusion or delusion Clinically improved significantly, outpatient follow-up with neurology Patient is stable to be discharged home today (3) E. coli UTI: Urine culture positive for E. coli on 01/27 Repeat urine culture on admission positive for gram-negative bacilli- E. Coli On p.o. cefdinir completed 5 days of treatment (4) Hyponatremia: Possible secondary to combination of dehydration and SIADH Nephrology following, continue fluid restriction 1200 mL a day Sodium improved to 130 today. per nephrology , cont fluid restriction 1200ml/day out pt follow up with Nephrology BMP in week Acute renal failure : resolved (5) Lab test positive for detection of COVID-19 virus: test positive on 02/06/2021 asymptomatic Treatment not indicated at this time Contact isolation ordered to be discontinued as per CDC guideline as patient is more than 11 days post Covid and remains asymptomatic Covid 19 testing today 02/17/2021 is negative Patient does not need any home quarantine or isolation (6) Atrial fibrillation: Rate controlled on diltiazem On Coumadin INR therapeutic, (7) HTN (hypertension): BP controlled continue diltiazem Lisinopril discontinued for hypotension (8) Epilepsy: Depakote level 92 Continue Depakote no seizure activity (9) CKD (chronic kidney disease), stage III: cr improved to baseline (10) DVT prophylaxis: Coumadin disposition : Stable to be discharged home today plan of care updated to patient's daughter Kate over phone Total Time Total Time Spent Total Time Spent (In Minutes): 35 mins Discharge Plan Discharge Items Patient Disposition: Home - Self-Care Reason For Visit: HYPONATREMIA Discharge Diagnosis: Hyponatremia Confusion, disorientation/encephalopathy resolved COVID-19 infection asymptomatic last COVID -19 test negative Activity: Resume your previous activity Non-emergency contact: Primary Care Provider Call non-emergency contact if: you have any medication questions Follow-up/Referrals: Kenneth Freitas MD [Surgeon] - 03/07/21 1:40 pm (Date & Time 03/07/2021 1:40 PM Provider Kenneth Freitas MD Department Nephrology, [facility] ) Ascencion Miramontes MD [Physician] - 05/12/21 3:40 pm (Date & Time 05/12/2021 3:40 PM Provider Alessandra Young MD Department Neurology [facility] ) José Miguel Alexis DO [Primary Care Provider] - 02/20/21 10:40 am (Date & Time 02/20/2021 10:40 AM Provider Gema Dougherty MD Department Family Practice [facility], [place] PLEASE NOTE THAT THIS IS A TELEVIDEO APOINTMENT. PLEASE FOLLOW THE INSTRUCTIONS PROVIDED IN YOUR EMAIL. IF YOU HAVE ANY QUESTIONS REGARDING THIS APPOINTMENT, PLEASE CALL ) Diet: Heart Healthy Fluids: 1200ml (5 cups) Addtl Attending Provider Instructions: Please take all medications as instructed on discharge list below. Needs follow up with Psychiatry and Rheumatology Neurology follow up with Dr Miramontes Please call if you have any questions or problems. You can reach a [facility] hospitalist on duty at [facility] 24 hours a day by calling [phone] Lab work: Basic metabolic panel/CBC in a week Continue fluid restriction 1200 mL a day your covid 19 test is negative today , no need to continue strict home quarentine or isolation Pending Studies at Discharge: No Stand-Alone Forms: My [facility], Smoking Cessation Medications and DC Order Prescriptions: New olanzapine 2.5 mg Tablet 7.5 mg PO HS Qty: 30 RF: 0 sodium chloride 1 gram Tablet 1 g PO BID Qty: 60 RF: 0 lorazepam [Ativan] 0.5 mg tablet 0.5 mg PO BID PRN (Reason: anxiety) Qty: 10 RF: 0 Continued diltiazem HCl [Cartia XT] 180 mg capsule,extended release 24hr 180 mg PO QAM RF: 0 alendronate 70 mg tablet 70 mg PO WK RF: 0 divalproex 500 mg tablet extended release 24 hr 1,000 mg PO QAM RF: 0 warfarin 5 mg tablet 2.5 - 5 mg PO DIRECTED RF: 0 rosuvastatin 5 mg tablet 5 mg PO PM RF: 0 acetaminophen [Tylenol] 325 mg capsule 325 mg PO DAILY PRN (Reason: Pain) RF: 0 Discontinued lisinopril 2.5 mg tablet 2.5 mg PO PM RF: 0 Discharge Orders: Discharge Order (Routine); Ordered 02/17/21 Ordered By: Ernestine Greco/Other Patient Handouts: Hyponatremia Dc, ED Dehydration (Adult) Admission Data Admit Date/Time: 02/06/21 13:11 Attending Provider: Ernestine Baires Admit Provider: Miri Alex Primary Care Provider: José Miguel Alexis Other Providers: Miri Alex ; Alessandra Young ; Kenneth Freitas ; [facility],Home Healthcare Other Interventions: Discharge Summary Assessment (RN) Last Done: 02/17/21 12:43 Home Health Attestation I certify that this patient is under my care and that I, or a physicians faculty research assistant working with me, had a face to-face encounter that meets the home health [id number] encounter requirements with this patient. The encounter with the patient was in whole, or in part, for the following medical condition, which is the primary reason for home health care (list medical condition): Hyponatremia I certify that, based on my findings, the following services are medically necessary home health services: My clinical findings support the need for the above services because: OT Assess ADL Status and Restore Function w ADLs PT Gait and Balance Training, Strengthening and Safety Further, I certify that my clinical findings support that this patient is homebound (i.e. absences from home require considerable and taxing effort and are for medical reasons or anabaptism services or infrequently or of short duration when for other reasons) because: Transportation Assistance/Unable to Leave Home Unassisted Certification for Home Health Services: Based on the above findings, I certify that this patient is confined to the home and needs intermittent nursing home care, physical therapy and/or speech therapy or continues to need occupational therapy. The patient is under my care, and I have initiated the establishment of the plan of care. This patient will be followed by a physician who will periodically review the plan of care.
== END 2021-02-17 17:43 | disposition home health service (06) | DRG 56 ==
LOC: ED 10:53 → 2S 13:11 → SUATTDRO 13:11 → 2S 16:19 → 3E 02-14 17:04